=== PATIENT | female | born 1950 | race Caucasian/White ===

== ENCOUNTER 2016-12-24 15:12 | Inpatient (IN) | payer MEDICARE ==
[~2016-12-24] VITALS: Ht 147.3 cm; Wt 52.5 kg
[~2016-12-24 15:12] MED LIST: ALBUTEROL 90 MCG/ACT 8GM HFA INHALER INH PRN; DEXTROSE 50% 50 ML SYRINGE IV PRN; GLUCAGON FOR INJ 1 MG VIAL (J1610) SC PRN; GLUCOSE 4 GM CHEW TABLET PO PRN
[2016-12-24 15:26] VITALS: BP 121/59
--- NOTE | 2016-12-24 16:19 | HPEPDOC ---
V Belt Builder Note ADMISSION H&P + SHIRAZ [Note: No discharge summary available at time of admission despite multiple requests] DATE OF ADMISSION: 12/24/16 DATE OF SERVICE: 12/24/16 PCP: Ovidio Ascencio DO [phone] Vascular Surgeon: Rj Bernardo MD [phone] IDENTIFICATION STATEMENT: Patient is a 66-year-old woman multiple medical comorbidities status post left [id number]-[id number] amputation admitted for comprehensive integrated inpatient rehabilitation. Thereve been no significant changes in the patients condition since the preadmission screening. HISTORY OF PRESENT ILLNESS: Patient is a 66-year-old woman with known peripheral artery disease admitted to [facility] in [place] on 2016 with left ischemic leg, no motor function. She was initially scheduled for femoral-tibial bypass with cryo-vein on 12/09/2016, but it was determined that she would require amputation. On 12/21/16 she underwent a left transfemoral amputation. Due to decline in the patients baseline functional status and need for continued medical care, recommendation was for acute rehabilitation. On the patient was deemed stable for discharge to [facility] inpatient rehabilitation unit. On evaluation today, the patient reports feeling better than yesterday. She has not moved her bowels since prior to admission. On she reports of moderate to severe pain in the left residual leg around the incision site and the posterior thigh. She describes the pain as constant burning with intermittent shock-like pain. She reports that the current pain medication is effective. Prior to her admission she reports taking [place] 6 tabs per day for all at least 6 weeks. All she also reports that she was taking the current dose of gabapentin for approximately year for her left lower limb neuropathic pain. PAST MEDICAL HISTORY: Hypertension Hyperlipidemia Diabetes mellitus type 1 [per patient, last hemoglobin A1c a few weeks ago and was > 8] Coronary artery disease Aortic stenosis Congestive heart failure Peripheral artery disease Phlebitis Peripheral neuropathy COPD Asthma Gastroesophageal reflux Glaucoma Cataracts, bilaterally Macular degeneration, left eye Anxiety/depression Nicotine dependence Heavy alcohol use Sleep apnea on CPAP Arthritis PAST SURGICAL HISTORY: section 2 Bilateral carpal tunnel release Hysterectomy Dilatation and curettage of the uterus Right JOVITA stent 06/04/2005 Bilateral femoral popliteal artery bypass 07/01/2005 Coronary artery stent placement (prior to bypass) Coronary artery bypass graft and aortic valve(pig-valve) replacement January 2012 Left SFA angioplasty and stent 09/12/2012 Femoral to below the knee popliteal bypass on the left secondary to occluded prior bypass Right SFA angioplasty and stent 11/11/2014 Right leg thrombolysis 06/23/2015 Left leg thrombolysis August 2015 Pr vein bypass graft, fem-dorsalis pedis; exlp left ant tib 11/18/2015 Left runoff, thrombolysis the left leg arterial bypass, left dorsalis pedis balloon angioplasty 10/12/2017 ALLERGIES: Ciprofloxacin & sulfa antibiotics give her hives Tape tends to tear her skin MEDICATIONS: Norvasc 5 mg daily Dulcolax 10 mg suppository daily Colace 100 mg twice a day MiraLAX 1 packet daily Ventolin 2 puffs every 4 hours as needed for shortness of breath [place] 0.1% one drop each eye nightly Coreg 25 mg by mouth daily Vitamin D 2000 units by mouth daily Clobetasol 0.05% topically bid Plavix 75 mg daily Cymbalta 60 mg daily Zetia 10 mg daily Advair Diskus 2 puffs 2 times a day Neurontin 600 mg 3 times a day [place] 1 tab 4 times a day as needed [place] 2 tabs at night Lantus 20 units subcutaneous at night Insulin sliding scale before meals and at bedtime Cozaar 50 mg daily Multivitamin 1 tab daily Xarelto 1 tab daily Crestor 10 mg daily Spiriva 18 g 1 capsule nightly Demadex 20 mg daily FAMILY HISTORY: Mother suffered from diabetes; Son 42yo has cerebral palsy. SOCIAL HISTORY: . She lives with her in a two-story home, her bathroom and bedroom on the first level. They have ramp access since her son is handicapped (recently moved to a senior care as she was no longer able to care for him). She owns a wheelchair, 3W walker, 4W walker, robert lift, and old hospital bed. They have a handicap shower. Her works, but she has additional family that may be able to assist her on post discharge. She reports smoking a 6-8 cigarettes per day for the last 50 years. She reports drinking three 1 ounce shots of iram every evening. Denies any illicit drug use. Review of Systems: General: no chills, +fatigue, no weight changes. Eyes: no change of vision. Ears, Nose & Throat: no sore throat, decreased hearing or nasal discharge. Cardiovascular: no chest pain, edema, syncopal episodes. Pul: no cough, SOB, has home CPAP. GI: no BM x 4 days; no abdominal pain, N/V. Genitourinary: no dysuria. Gynecological: no vaginal bleeding, s/p hysterectomy . Musculoskeletal: no back/neck/joint pain. Neurological: +phantom limb sensation, but no phantom pain. no numbness, paresthesias, no tremors, progressive weakness, seizures, HARDING. Hematological: No bleeding disorders. Has been on Xarelto for ~1yr. Skin: no rashes. Psychiatric: depression/ anxiety well controlled on cymbalta, no behavioral issues. She denies any cravings for alcohol. She denies any diaphoresis, agitation, tremulousness. She does report some craving for smoking. VITAL SIGNS: 97.3F, pulse 89, respiratory rate 18, 145/79, 95% saturation on room air PHYSICAL EXAMINATION: GENERAL: Well nourished, well developed, sitting up in bed, no acute distress. HEENT: Normocephalic, atraumatic. No jugular venous distention (JVD). PERRL, EOMI CARDIOVASCULAR: S1, S2, regular rate. Left AKA -residual limb with sutures and oscar, no thickened discharge, no pus, no significant erythema, appears to be healing well. No swelling or calf edema on the right lower limb LUNGS: Decreased breath sounds throughout,, but clear to auscultation bilaterally no wheezing, rhonchi rales. ABDOMEN: Soft, nontender, nondistended. Positive normoactive bowel sounds throughout. MUSCULOSKELETAL: Diffuse osteoarthritic changes in the PIP and DIP joints of the hands. Manual muscle testin/5 strength bilateral upper limbs and right lower limb in all major muscle groups. 3/5 strength left hip flexors (give way) Sensation: Intact to soft touch bilateral upper and lower limbs. Positive tenderness to light palpation blanca-surgical region, but no allodynia. Deep tendon reflexes: Able to elicit biceps bilaterally, unable to elicit right lower limb. NEUROLOGICAL: Alert and oriented x 3. Answers all questions appropriately. Memory intact. Able to follow commands without difficulty. SKIN: 3 cm skin abrasion with scab on the left distal forearm, surgical site left residual limb, clean and intact with sutures and oscar. LABORATORY DATA: 12/24/2016: WBC 12.7, hemoglobin 11.5, hematocrit 35.3, platelets 3:30 T 16 2017: Sodium 136, potassium 4.7, chloride 92, carbon dioxide 33, BUN 16, creatinine 0.67, glucose 223, calcium 8.9 IMAGING: None provided FUNCTIONAL STATUS: Premorbid: Independent with ADLs and transfers. On Admission: Moderate assist for bed mobility, total assist for repositioning, moderate assist for transfers ASSESSMENT AND PLAN: 1. Left ischemic leg secondary to peripheral artery disease status post left [id number] amputation now with decreased mobility and dysfunctional ADLs: Patient is nonweightbearing on the left lower limb. Continue Plavix and anticoagulation with Xarelto. She will undergo thorough physical and occupational therapy evaluations followed by daily intensive therapy. Rehabilitation nursing for bladder, bowel, medication management and wound care. She will need follow-up appointment with her vascular surgeon, Dr. Bernardo post discharge. 2. Pain: Will continue on current pain regimen, gabapentin 3 times a day along with acetaminophen and [place] on an as-needed basis. Opioid tolerant. Intermittent ice to the left residual limb. 3. Bowel: Given the patients on opiates, will provide her with a bowel regimen to include Colace and senna scheduled along with milk of magnesia on an as- needed basis. 4. Cardiac/coronary artery disease/valvular heart disease/congestive heart failure: Daily weights. Will continue patient on her regular cardiac meds including Coreg, Plavix, Cozaar, Crestor and Demadex. 5. DVT prophylaxis: Patient anticoagulated with Xarelto. 6. GI prophylaxis: Given patients on anticoagulation and antiplatelet, will provided with Protonix daily while in the hospital. 7. Pulmonary (COPD, asthma, sleep apnea): Will maintain patient on her inhalers , Proventil, Advair, Spiriva. Patient instructed to have her CPAP brought in by her family. 8. Diabetes mellitus type 2: Maintain patient on long-acting insulin at night along with insulin sliding scale before meals and at bedtime. Carb consistent diet. 9. Depression: Continue Cymbalta 10. Alcohol and tobacco dependence: Patient out of the window of delirium tremors and currently not experiencing any signs or symptoms of withdrawal. Will continue to monitor. Regarding the patients of nicotine/smoking cravings. Given her severe peripheral vascular disease and coronary artery disease will abstain from nicotine patch. 11. Diet/nutrition: Will obtain a prealbumin with morning labs. Maintain patient on her carbohydrate consistent diet. Nutritional supplements as indicated. POST ADMISSION PHYSICIAN EVALUATION: On evaluation of the patient today there' ve been no significant medical issues or functional changes as compared to those noted in the preadmission screening document. This patient's inpatient rehabilitation remains necessary in light of the above conditions. The patient' s medical condition requires specialized care with physicians specially trained in physical medicine rehabilitation. The patient is capable motivated to participate in a minimum of 3 hours of therapy daily, 5 days minimum per week, and requires intensive inpatient rehabilitation to improve their functional status so that they can be safely to discharge back to their home. PROGNOSIS: good ESTIMATED LENGTH OF STAY: 10-14 days. / Vital Signs Vital Sign - Last 24 Hours 12/24/16 15:26 Temp 98.2 Pulse 95 Resp 18 B/P 121/59 Pulse Ox 95 O2 Delivery Room Air Home Medications Scheduled Amlodipine Besylate (Amlodipine Besylate) 5 Mg Tab 5 MG PO DAILY (Reported) STARTED AT [facility] Bimatoprost (Lumigan) 50 Drop/2.5 Ml Marlene 1 DROP OU QHS (Reported) Bisacodyl (Dulcolax) 10 Mg Sup 10 MG TN DAILY (Reported) STARTED AT [facility] Carvedilol (Carvedilol) 25 Mg Tab 25 MG PO DAILY (Reported) Cholecalciferol (Vitamin D) 1,000 Unit Tab 2,000 UNIT PO DAILY (Reported) Clopidogrel Bisulfate (Plavix) 75 Mg Tab 75 MG PO DAILY (Reported) Docusate Sodium (Colace) 100 Mg Cap 100 MG PO BID (Reported) STARTED AT [facility] Duloxetine Hcl (Duloxetine HCl) 60 Mg Cap 60 MG PO DAILY (Reported) Ezetimibe (Zetia) 10 Mg Tab 10 MG PO DAILY (Reported) Gabapentin (Gabapentin) 600 Mg Tab 600 MG PO TID (Reported) Insulin Glargine (Lantus) 1 Units/0.01 Ml Susp 20 UNITS SC QHS (Reported) Insulin Human Lispro (Humalog) 1 Units/0.01 Ml Inj 0 SC ACHS (Reported) Losartan Potassium (Losartan Potassium) 50 Mg Tab 50 MG PO DAILY (Reported) Multivitamins (Ocuvite) 1 Tab Tab 1 TAB PO DAILY (Reported) Polyethylene Glycol (Miralax) 1 Pow Pow 17 GM PO DAILY (Reported) STARTED AT [facility] Rivaroxaban (Xarelto) 20 Mg Tab 20 MG PO QPM (Reported) Rosuvastatin Calcium (Crestor) 20 Mg Tab 20 MG PO DAILY (Reported) Salmeterol/Fluticasone (Advair Hfa 115-21 Mcg/Act) 1 Aer Aer 2 PUFF INH BID ( Reported) Tiotropium [place] Monohydrate (Spiriva Handihaler) 18 Mcg Cap 1 INHALATION INH QHS (Reported) Torsemide (Torsemide) 20 Mg Tab 20 MG PO DAILY (Reported) Scheduled PRN Acetaminophen/Hydrocodone (Hydrocodone/Acetaminophen 5-325 mg) 1 Tab Tab 1 TAB PO Q4H PRN PRN MODERATE PAIN (PS 5-7) (Reported) MDD 4 Acetaminophen/Hydrocodone (Hydrocodone/Acetaminophen 5-325 mg) 1 Tab Tab 2 TAB PO Q4H PRN PRN SEVERE PAIN (PS 8-10) (Reported) MDD 4 Allergies Coded Allergies: Ciprofloxacin (Verified Allergy, Unknown, 12/24/16) Sulfa Antibiotics (Verified Allergy, Unknown, 12/24/16) TAPE (Verified Allergy, Unknown, 12/24/16) LINDA GIBSON MD Dec 24, 2016 16:19
[2016-12-24] MEDS: NORCO, ANEXSIA 5/325MG TABLET (HYDROcodone/ACETAMINOPHEN) PO PRN ×2 (16:31→20:33)
[2016-12-24] MEDS ORDERED: CARV25TA PO (16:35)
[2016-12-24] MEDS ORDERED: DULC10SU2 PR (16:35)
[2016-12-24] MEDS ORDERED: VITA100066 PO (16:35)
[2016-12-24] MEDS ORDERED: AMLO5TAB2 PO (16:35)
[2016-12-24] MEDS ORDERED: BIMA01SOL OU (16:35)
[2016-12-24] MEDS ORDERED: CLOB0.0548 TOP (16:35)
[2016-12-24] MEDS ORDERED: CRES20TA PO (16:35)
[2016-12-24] MEDS ORDERED: DULO1CAP3 PO (16:41)
[2016-12-24] MEDS ORDERED: INSUHUMDS SC (16:41)
[2016-12-24] MEDS ORDERED: GABA600T PO (16:41)
[2016-12-24] MEDS ORDERED: ZETI10TA2 PO (16:41)
[2016-12-24] MEDS ORDERED: COLA100C PO (16:41)
[2016-12-24] MEDS ORDERED: HYDR-3713 PO (16:41)
[2016-12-24] MEDS ORDERED: PLAV75TA38 PO (16:41)
[2016-12-24] MEDS ORDERED: INSULANT SC (16:41)
[2016-12-24] MEDS ORDERED: SPIR1CAP INH (16:53)
[2016-12-24] MEDS ORDERED: XARE20TA PO (16:53)
[2016-12-24] MEDS ORDERED: OCUVTAB PO (16:53)
[2016-12-24] MEDS ORDERED: LOSA50TA20 PO (16:53)
[2016-12-24] MEDS ORDERED: ADVA115A INH (16:53)
[2016-12-24] MEDS ORDERED: MIRA33504 PO (16:53)
[2016-12-24] MEDS ORDERED: TORS20TA2 PO (16:53)
[2016-12-24] MEDS: HumaLOG INSULIN (NovoLOG) PER UNIT SC SCH ×2 (16:55→21:13)
[2016-12-24] MEDS: GABAPENTIN 300 MG CAP PO SCH ×2 (16:55→21:12)
[2016-12-24] MEDS: RIVAROXABAN 20 MG TAB (XARELTO) PO SCH (18:38)
[2016-12-24] MEDS: ADVAIR HFA 115/21 INHALER INH SCH (20:05)
[2016-12-24] MEDS: DOCUSATE SODIUM 100 MG CAP PO SCH (20:32)
[2016-12-24] MEDS: SENNA 8.6 MG TAB (SENOKOT) PO SCH (20:32)
[2016-12-24] MEDS: LATANOPROST 0.005% OPHTH SOLN 2.5 ML OU SCH (20:33)
[2016-12-24 21:00] VITALS: BP 122/68
[2016-12-24] MEDS: LEVEMIR (INSULIN DETEMIR) 1 UNITS/0.01ML SC SCH (21:13)
[2016-12-25] MEDS: NORCO, ANEXSIA 5/325MG TABLET (HYDROcodone/ACETAMINOPHEN) PO PRN ×4 (02:02→20:46)
[2016-12-25 06:00] VITALS: BP 148/70
[2016-12-25] MEDS: GABAPENTIN 300 MG CAP PO SCH ×3 (06:13→21:16)
[2016-12-25 07:00] LABS: BASO % 0.1 % (0.0-1.0); EOS # 0.1 K/mm3 (0.0-0.50); EOS % 1.1 % (0.0-3.0); LARGE UNSTAINED CELL # 0.2 K/mm3 (0.0-0.4); LARGE UNSTAINED CELL % 1.8 % (0.0-4.0); LYMPH # 1.4 K/mm3 (1.5-4.5); LYMPH % 10.7 % (24.0-44.0); MEAN CORPUSCULAR HEMOGLOBIN 28.4 pg (27.0-33.0); MEAN CORPUSCULAR HGB CONC 31.7 g/dl (32.0-36.5); MEAN CORPUSCULAR VOLUME 89.8 fl (80.0-96.0); MONO # 0.5 K/mm3 (0.0-0.8); MONO % 4.5 % (0.0-5.0); NEUTROPHILS # 9.3 K/mm3 (1.8-7.7); NEUTROPHILS % 81.7 % (36.0-66.0); PLATELET COUNT, AUTOMATED 394 k/mm3 (150-450); RED CELL DISTRIBUTION WIDTH 15.6 % (11.5-14.5); WHITE BLOOD COUNT 11.3 K/mm3 (4.0-10.0)
[2016-12-25 07:20] LABS: ANION GAP 8 MEQ/L (8-16); BLOOD UREA NITROGEN 13 MG/DL (7-18); CALCIUM LEVEL 8.2 MG/DL (8.8-10.2); CARBON DIOXIDE LEVEL 35 MEQ/L (21-32); CHLORIDE LEVEL 97 MEQ/L (98-107); CREATININE FOR GFR 0.57 MG/DL (0.55-1.02); GLOMERULAR FILTRATION RATE > 60.0 (>45); GLUCOSE, FASTING 187 MG/DL (80-110); POTASSIUM SERUM 3.9 MEQ/L (3.5-5.1); SODIUM LEVEL 140 MEQ/L (136-145)
[2016-12-25] MEDS: MULTIVITAMINS/MINERALS THERAP 1 TAB PO SCH (08:15)
[2016-12-25] MEDS: DOCUSATE SODIUM 100 MG CAP PO SCH ×2 (08:15→20:46)
[2016-12-25] MEDS: VITAMIN D 1,000 INTERNATIONAL UNITS TABLET PO SCH (08:15)
[2016-12-25] MEDS: PANTOPRAZOLE 40MG TAB (PROTONIX) PO SCH (08:15)
[2016-12-25] MEDS: DULoxetine 30 MG CAP (CYMBALTA) PO SCH (08:15)
[2016-12-25] MEDS: HumaLOG INSULIN (NovoLOG) PER UNIT SC SCH ×4 (08:15→20:51)
[2016-12-25] MEDS: amLODIPine 5 MG TAB PO SCH (08:16)
[2016-12-25] MEDS: TORSEMIDE 20 MG TAB PO SCH (08:16)
[2016-12-25] MEDS: EZETIMIBE 10 MG TAB (ZETIA) PO SCH (08:16)
[2016-12-25] MEDS: LOSARTAN 50 MG TAB PO SCH (08:16)
[2016-12-25] MEDS: CLOPIDOGREL 75 MG TAB PO SCH (08:16)
[2016-12-25] MEDS: ROSUVASTATIN 10 MG TAB (CRESTOR) PO SCH (08:16)
[2016-12-25] MEDS: CARVedilol 12.5 MG TAB PO SCH (08:17)
[2016-12-25] MEDS: TIOTROPIUM INHALER/CAPSULE (SPIRIVA) INH SCH (08:21)
[2016-12-25] MEDS: ADVAIR HFA 115/21 INHALER INH SCH ×2 (08:21→19:49)
[2016-12-25 14:00] VITALS: BP 143/65
[2016-12-25] MEDS: RIVAROXABAN 20 MG TAB (XARELTO) PO SCH (17:34)
[2016-12-25] MEDS: MOM 30ML SUSPENSION UDC PO PRN (17:34)
[2016-12-25] MEDS: MIRALAX *UNIT DOSE* 17GM PACKET PO PRN (17:34)
[2016-12-25 20:00] VITALS: BP 168/74
[2016-12-25] MEDS: LATANOPROST 0.005% OPHTH SOLN 2.5 ML OU SCH (20:45)
[2016-12-25] MEDS: SENNA 8.6 MG TAB (SENOKOT) PO SCH (20:46)
[2016-12-25] MEDS: LEVEMIR (INSULIN DETEMIR) 1 UNITS/0.01ML SC SCH (20:46)
[2016-12-25 21:16] VITALS: BP 142/68
[2016-12-26] MEDS: GABAPENTIN 300 MG CAP PO SCH ×3 (05:07→21:47)
[2016-12-26] MEDS: NORCO, ANEXSIA 5/325MG TABLET (HYDROcodone/ACETAMINOPHEN) PO PRN ×4 (05:08→20:14)
[2016-12-26 06:00] VITALS: BP 153/70
[2016-12-26] MEDS: DOCUSATE SODIUM 100 MG CAP PO SCH ×2 (08:14→20:07)
[2016-12-26] MEDS: PANTOPRAZOLE 40MG TAB (PROTONIX) PO SCH (08:14)
[2016-12-26] MEDS: ROSUVASTATIN 10 MG TAB (CRESTOR) PO SCH (08:14)
[2016-12-26] MEDS: HumaLOG INSULIN (NovoLOG) PER UNIT SC SCH ×4 (08:14→21:47)
[2016-12-26] MEDS: MULTIVITAMINS/MINERALS THERAP 1 TAB PO SCH (08:14)
[2016-12-26] MEDS: TORSEMIDE 20 MG TAB PO SCH (08:15)
[2016-12-26] MEDS: EZETIMIBE 10 MG TAB (ZETIA) PO SCH (08:15)
[2016-12-26] MEDS: CLOPIDOGREL 75 MG TAB PO SCH (08:15)
[2016-12-26] MEDS: LOSARTAN 50 MG TAB PO SCH (08:15)
[2016-12-26] MEDS: amLODIPine 5 MG TAB PO SCH (08:16)
[2016-12-26] MEDS: VITAMIN D 1,000 INTERNATIONAL UNITS TABLET PO SCH (08:16)
[2016-12-26] MEDS: DULoxetine 30 MG CAP (CYMBALTA) PO SCH (08:16)
[2016-12-26] MEDS: CARVedilol 12.5 MG TAB PO SCH (08:16)
[2016-12-26] MEDS: MOM 30ML SUSPENSION UDC PO PRN (08:17)
[2016-12-26] MEDS: ADVAIR HFA 115/21 INHALER INH SCH ×2 (11:03→21:32)
[2016-12-26 14:00] VITALS: BP 127/53
[2016-12-26] MEDS: TIOTROPIUM INHALER/CAPSULE (SPIRIVA) INH SCH (14:10)
[2016-12-26] MEDS: RIVAROXABAN 20 MG TAB (XARELTO) PO SCH (17:44)
[2016-12-26 20:00] VITALS: BP 121/57
[2016-12-26] MEDS: SENNA 8.6 MG TAB (SENOKOT) PO SCH (20:08)
[2016-12-26] MEDS: LATANOPROST 0.005% OPHTH SOLN 2.5 ML OU SCH (20:12)
[2016-12-26] MEDS: LEVEMIR (INSULIN DETEMIR) 1 UNITS/0.01ML SC SCH (21:47)
[2016-12-27] MEDS: NORCO, ANEXSIA 5/325MG TABLET (HYDROcodone/ACETAMINOPHEN) PO PRN ×4 (02:46→20:00)
[2016-12-27 06:00] VITALS: BP 126/64
[2016-12-27] MEDS: GABAPENTIN 300 MG CAP PO SCH ×3 (06:14→20:54)
[2016-12-27] MEDS: HumaLOG INSULIN (NovoLOG) PER UNIT SC SCH ×4 (08:37→20:02)
[2016-12-27] MEDS: ROSUVASTATIN 10 MG TAB (CRESTOR) PO SCH (08:37)
[2016-12-27] MEDS: LOSARTAN 50 MG TAB PO SCH (08:37)
[2016-12-27] MEDS: PANTOPRAZOLE 40MG TAB (PROTONIX) PO SCH (08:37)
[2016-12-27] MEDS: DOCUSATE SODIUM 100 MG CAP PO SCH ×2 (08:37→19:58)
[2016-12-27] MEDS: VITAMIN D 1,000 INTERNATIONAL UNITS TABLET PO SCH (08:38)
[2016-12-27] MEDS: MULTIVITAMINS/MINERALS THERAP 1 TAB PO SCH (08:38)
[2016-12-27] MEDS: amLODIPine 5 MG TAB PO SCH (08:38)
[2016-12-27] MEDS: CARVedilol 12.5 MG TAB PO SCH (08:38)
[2016-12-27] MEDS: EZETIMIBE 10 MG TAB (ZETIA) PO SCH (08:38)
[2016-12-27] MEDS: CLOPIDOGREL 75 MG TAB PO SCH (08:38)
[2016-12-27] MEDS: TORSEMIDE 20 MG TAB PO SCH (08:39)
[2016-12-27] MEDS: DULoxetine 30 MG CAP (CYMBALTA) PO SCH (08:39)
[2016-12-27] MEDS: ADVAIR HFA 115/21 INHALER INH SCH ×2 (08:40→19:46)
--- NOTE | 2016-12-27 12:16 | IPNPDOC ---
Commercial Baking Teacher Progress Note PROGRESS NOTE DATE OF ADMISSION: 12/24/16 DATE OF SERVICE: 12/27/16 PCP: Ovidio Ascencio DO [phone] Vascular Surgeon: Rj Bernardo MD [phone] IDENTIFICATION STATEMENT: Patient is a 66-year-old woman multiple medical comorbidities status post left [id number] amputation admitted for comprehensive integrated inpatient rehabilitation. PAST MEDICAL HISTORY: Hypertension Hyperlipidemia Diabetes mellitus type 1 [per patient, last hemoglobin A1c a few weeks ago and was > 8] Coronary artery disease Aortic stenosis Congestive heart failure Peripheral artery disease Phlebitis Peripheral neuropathy COPD Asthma Gastroesophageal reflux Glaucoma Cataracts, bilaterally Macular degeneration, left eye Anxiety/depression Nicotine dependence Heavy alcohol use Sleep apnea on CPAP Arthritis PAST SURGICAL HISTORY: section 2 Bilateral carpal tunnel release Hysterectomy Dilatation and curettage of the uterus Right JOVITA stent 06/04/2005 Bilateral femoral popliteal artery bypass 07/01/2005 Coronary artery stent placement (prior to bypass) Coronary artery bypass graft and aortic valve(pig-valve) replacement January 2012 Left SFA angioplasty and stent 09/12/2012 Femoral to below the knee popliteal bypass on the left secondary to occluded prior bypass Right SFA angioplasty and stent 11/11/2014 Right leg thrombolysis 06/23/2015 Left leg thrombolysis August 2015 Pr vein bypass graft, fem-dorsalis pedis; exlp left ant tib 11/18/2015 Left runoff, thrombolysis the left leg arterial bypass, left dorsalis pedis balloon angioplasty 10/12/2017 ALLERGIES: Ciprofloxacin & sulfa antibiotics give her hives Tape tends to tear her skin MEDICATIONS: Plavix 75 mg daily Xarelto 1 tab daily Protonix 40mg daily Norvasc 5 mg daily Coreg 25 mg by mouth daily Demadex 20 mg daily Vitamin D 2000 units by mouth daily Cymbalta 60 mg daily Zetia 10 mg daily Detrimir 20u SQ qhs Advair Diskus 2 puffs 2 times a day Neurontin 600 mg 3 times a day Colace 100 mg twice a day MiraLAX 1 packet daily prn Ventolin 2 puffs every 4 hours as needed for shortness of breath Lumigan 0.1% one drop each eye nightly Clobetasol 0.05% topically bid [place] 1-2 tabs PO q4h prn Insulin sliding scale before meals and at bedtime Cozaar 50 mg daily Multivitamin 1 tab daily Crestor 10 mg daily Spiriva 18 g 1 capsule nightly SUBJECTIVE: Patient reports new phantom limb pain, started yesterday. Described as intermittent, sharp/burning, posterior thigh and radiating down limb. No other complaints. Denies any CP, SOB, N/V, diaphoresis, dysuria, C/D. VITAL SIGNS: 97.4F, pulse 82, respiratory rate 18, 126/64, 97% saturation on room air. Wt 54.9kg PHYSICAL EXAMINATION: GENERAL: Well nourished, well developed, sitting up in bed, no acute distress. HEENT: Normocephalic, atraumatic. No jugular venous distention (JVD). PERRL, EOMI CARDIOVASCULAR: S1, S2, regular rate. Left AKA -residual limb with sutures and oscar, no discharge, no pus, no significant erythema, appears to be healing well. No swelling or calf edema on the right lower limb LUNGS: Decreased breath sounds throughout, but clear to auscultation bilaterally no wheezing, rhonchi rales. ABDOMEN: Soft, nontender, nondistended. Positive normoactive bowel sounds throughout. MUSCULOSKELETAL: Diffuse osteoarthritic changes in the PIP and DIP joints of the hands. MMT: 5/5 strength bilateral upper limbs and right lower limb in all major muscle groups. 3/5 strength left hip flexors (give way) NEUROLOGICAL: Alert and oriented x 3. Answers all questions appropriately. Memory intact. Able to follow commands without difficulty. SKIN: 3 cm skin abrasion with scab on the left distal forearm, surgical site left residual limb, clean and intact with sutures and oscar. LABORATORY DATA: 12/25/16: reviewed, WBC 11.3, BG 187 12/24/2016: WBC 12.7, hemoglobin 11.5, hematocrit 35.3, platelets 3:30 T 16 2017: Sodium 136, potassium 4.7, chloride 92, carbon dioxide 33, BUN 16, creatinine 0.67, glucose 223, calcium 8.9 FUNCTIONAL STATUS: Premorbid: Independent with ADLs and transfers. On Admission: Moderate assist for bed mobility, total assist for repositioning, moderate assist for transfers ASSESSMENT AND PLAN: 1. Left ischemic leg secondary to peripheral artery disease status post left vaina-jqi-pypc amputation now with decreased mobility and dysfunctional ADLs: NWB on the left lower limb. Continue Plavix and anticoagulation with Xarelto. Continue daily physical and occupational therapy. Rehabilitation nursing for bladder, bowel, medication management and wound care. She will need follow-up appointment with her vascular surgeon, Dr. Bernardo post discharge and manager [employer] database. 2. Pain: Now experiencing phantom pain. I have removed dressing given patients sensitivity to tape. If persists, will increase evening dose gabapentin. Continue acetaminophen and [place] on an as-needed basis. Intermittent ice to the left residual limb. 3. Bowel: Continue bowel regimen to include Colace and senna scheduled along with milk of magnesia on an as-needed basis. 4. Cardiac/coronary artery disease/valvular heart disease/congestive heart failure: Weight down sinice admission. Continue daily weights. Continue her regular cardiac meds including Coreg, Xarelto, Plavix, Cozaar, Crestor and Demadex. 5. DVT prophylaxis: Patient anticoagulated with Xarelto. 6. GI prophylaxis: Continue Protonix daily while in the hospital. 7. Pulmonary (COPD, asthma, sleep apnea): Will maintain patient on her inhalers , Proventil, Advair, Spiriva. Continue CPAP at night. 8. Diabetes mellitus type 2: Goal for tight BG control to facilitate healing. She states her ISS is different at home and that she usually uses more insulin. Will increase long-acting insulin and insulin sliding scale before meals and at bedtime. Carb consistent diet. 9. Depression: Controlled. Continue Cymbalta 10. Alcohol and tobacco dependence: No signs or symptoms of withdrawal. 11. Diet/severe malnutrition: Prealbumin low. Continue Glucerna supplements. Maintain carbohydrate consistent diet. / Vital Signs Vital Sign - Last 24 Hours 12/26/16 12/26/16 12/26/16 12/26/16 14:00 16:22 20:00 20:14 Temp 98.7 99.2 Pulse 81 86 Resp 18 18 18 18 B/P 127/53 121/57 Pulse Ox 94 93 94 O2 Delivery Room Air Room Air Room Air 12/26/16 12/27/16 12/27/16 12/27/16 20:28 02:46 03:20 06:00 Temp 97.4 Pulse 82 Resp 18 18 B/P 126/64 Pulse Ox 95 95 97 O2 Delivery Room Air Room Air Nasal Cannula O2 Flow Rate 2.0 12/27/16 12/27/16 12/27/16 12/27/16 08:37 08:38 08:41 09:41 Pulse 82 Resp 18 18 B/P 126/64 126/64 12/27/16 09:55 O2 Delivery Room Air Laboratory Data Labs 24H Laboratory Tests 2 12/26/16 17:18: Bedside Glucose (Misc Panel) 240H 12/26/16 20:53: Bedside Glucose (Misc Panel) 342H 12/27/16 05:56: Bedside Glucose (Misc Panel) 221H 12/27/16 11:26: Bedside Glucose (Misc Panel) 268H FSBS Laboratory Tests Test 12/26/16 17:18 12/26/16 20:53 12/27/16 05:56 12/27/16 11:26 Range/Units Bedside Glucose (Misc Panel) 240 342 221 268 80-115 MG/DL Allergies Allergies: Coded Allergies: Ciprofloxacin (Verified Allergy, Unknown, 12/24/16) Sulfa Antibiotics (Verified Allergy, Unknown, 12/24/16) TAPE (Verified Allergy, Unknown, 12/24/16) Current Medications Current Medications Current Medications Acetaminophen (Tylenol Tab) 650 mg Q4HP PRN PO MILD PAIN (PS 1-4); Start at 14:30; Stop 01/23/17 at 14:29 Acetaminophen/ Hydrocodone Bitart ([place], [place] 5/325) 1 tab Q4HP PRN PO MODERATE/SEVERE PAIN (PS 5-10) Last administered on 12/25/16 02:02; Start 12/24 at 14:30; Stop 12/31/16 at 14:29 Acetaminophen/ Hydrocodone Bitart ([place], [place] 5/325) 2 tab Q4HP PRN PO SEVERE PAIN (PS 8-10) Last administered on 12/27/16 08:41; Start 12/24/16 at 14 :30; Stop 12/31/16 at 14:29 Albuterol Sulfate (Proventil, Ventolin Hfa) 2 puff Q4HP PRN INH SHORTNESS OF BREATH; Start 12/24/16 at 14:30; Stop 01/23/17 at 14:29 Amlodipine Besylate (Norvasc) 5 mg DAILY PO Last administered on 12/27/16 08: 38; Start 12/25/16 at 09:00; Stop 01/24/17 at 08:59 Carvedilol (COReg) 25 mg DAILY PO Last administered on 12/27/16 08:38; Start 12/25/16 at 09:00; Stop 01/24/17 at 08:59 Clopidogrel Bisulfate (PLAVix) 75 mg DAILY PO Last administered on 12/27/16 08 :38; Start 12/25/16 at 09:00; Stop 01/24/17 at 08:59 Dextrose (Dextrose 50%) 25 ml ASDIRECTED PRN IV SEE LABEL COMMENTS; Start 12/24 at 14:30; Stop 01/23/17 at 14:29 Docusate Sodium (Colace) 100 mg BID PO Last administered on 12/27/16 08:37; Start 12/24/16 at 21:00; Stop 01/23/17 at 20:59 Duloxetine HCl (Cymbalta) 60 mg DAILY PO Last administered on 12/27/16 08:39; Start 12/25/16 at 09:00; Stop 01/24/17 at 08:59 EZETIMIBE (Zetia) 10 mg DAILY PO Last administered on 12/27/16 08:38; Start at 09:00; Stop 01/24/17 at 08:59 Gabapentin (Neurontin) 600 mg Q8H PO Last administered on 12/27/16 06:14; Start 12/24/16 at 14:00; Stop 01/23/17 at 13:59 Glucagon (Glucagon) 1 mg ASDIRECTED PRN SC SEE LABEL COMMENTS; Start 12/24/16 at 14:30; Stop 01/23/17 at 14:29 Glucose (Glucose) 16 GM ASDIRECTED PRN PO SEE LABEL COMMENTS; Start 12/24/16 at 14:30; Stop 01/23/17 at 14:29 Home Med (Med Rec Complete!) ASDIRECTED XX ; Start 12/24/16 at 17:00; Stop at 17:00; Status DC Insulin Detemir (Levemir Insulin) 20 units QHS SC Last administered on 21:47; Start 12/24/16 at 21:00; Stop 01/23/17 at 20:59 Insulin Human Lispro (HumaLOG INSULIN) See Protocol Table AC SC Last administered on 12/27/16 11:55; Start 12/24/16 at 17:30; Stop 01/23/17 at 17:29 Insulin Human Lispro (HumaLOG INSULIN) See Protocol Table QHS SC Last administered on 12/26/16 21:47; Start 12/24/16 at 21:00; Stop 01/23/17 at 20:59 Latanoprost (Xalatan 0.005% Op Soln) 1 drop QHS OU Last administered on 20:12; Start 12/24/16 at 21:00; Stop 01/23/17 at 20:59 Losartan Potassium (Cozaar) 50 mg DAILY PO Last administered on 12/27/16 08:37 ; Start 12/25/16 at 09:00; Stop 01/24/17 at 08:59 Magnesium Hydroxide (Milk Of Magnesia) 30 ml DAILYPRN PRN PO CONSTIPATION Last administered on 12/26/16 08:17; Start 12/24/16 at 14:30; Stop 01/23/17 at 14:29 Multivitamins (Theragram-M) 1 tab DAILY PO Last administered on 12/27/16 08:38 ; Start 12/25/16 at 09:00; Stop 01/24/17 at 08:59 Pantoprazole Sodium (Protonix) 40 mg DAILY PO Last administered on 12/27/16 08 :37; Start 12/25/16 at 09:00; Stop 01/24/17 at 08:59 Polyethylene Glycol (Miralax) 1 pkt DAILY PRN PO CONSTIPATION Last administered on 12/25/16 17:34; Start 12/24/16 at 14:30; Stop 01/23/17 at 14:29 Rivaroxaban (Xarelto) 20 mg DAILY@18 PO Last administered on 12/26/16 17:44; Start 12/24/16 at 18:00; Stop 12/31/16 at 17:59 Rosuvastatin Calcium (Crestor) 10 mg DAILY PO Last administered on 12/27/16 08 :37; Start 12/25/16 at 09:00; Stop 01/24/17 at 08:59 Salmeterol Xinafoate/ Fluticasone (Advair Hfa 115/ 21) 2 puff BID INH Last administered on 12/27/16 08:40; Start 12/24/16 at 21:00; Stop 01/23/17 at 20:59 Senna (Senokot) 1 tab QHS PO Last administered on 12/25/16 20:46; Start at 21:00; Stop 01/23/17 at 20:59 Tiotropium [place] (Spiriva Handihaler) 1 inhalation DAILY@08 INH ; Start at 08:00; Stop 01/26/17 at 07:59 Tiotropium [place] (Spiriva Handihaler) 1 inhalation QPM INH Last administered on 12/26/16 14:10; Start 12/24/16 at 21:00; Stop 12/27/16 at 09:08; Status DC Torsemide (Demadex) 20 mg DAILY PO Last administered on 12/27/16 08:39; Start 12/25/16 at 09:00; Stop 01/24/17 at 08:59 Vitamin D (Vitamin D) 2,000 units DAILY PO Last administered on 12/27/16 08:38 ; Start 12/25/16 at 09:00; Stop 01/24/17 at 08:59 LINDA GIBSON MD Dec 27, 2016 12:15
[2016-12-27 14:00] VITALS: BP 137/71
[2016-12-27] MEDS: TIOTROPIUM INHALER/CAPSULE (SPIRIVA) INH SCH (14:26)
[2016-12-27] MEDS: RIVAROXABAN 20 MG TAB (XARELTO) PO SCH (17:05)
[2016-12-27] MEDS: LATANOPROST 0.005% OPHTH SOLN 2.5 ML OU SCH (19:57)
[2016-12-27] MEDS: SENNA 8.6 MG TAB (SENOKOT) PO SCH (19:58)
[2016-12-27 20:00] VITALS: BP 123/58
[2016-12-27] MEDS: LEVEMIR (INSULIN DETEMIR) 1 UNITS/0.01ML SC SCH (20:01)
[2016-12-28] MEDS: NORCO, ANEXSIA 5/325MG TABLET (HYDROcodone/ACETAMINOPHEN) PO PRN ×5 (02:10→20:58)
[2016-12-28 05:06] VITALS: BP 162/69
[2016-12-28] MEDS: GABAPENTIN 300 MG CAP PO SCH (05:20)
[2016-12-28 06:41] LABS: BASO % 0.3 % (0.0-1.0); EOS # 0.1 K/mm3 (0.0-0.50); EOS % 1.7 % (0.0-3.0); LARGE UNSTAINED CELL # 0.2 K/mm3 (0.0-0.4); LARGE UNSTAINED CELL % 2.2 % (0.0-4.0); LYMPH # 1.6 K/mm3 (1.5-4.5); MEAN CORPUSCULAR HEMOGLOBIN 28.5 pg (27.0-33.0); MEAN CORPUSCULAR HGB CONC 31.8 g/dl (32.0-36.5); MEAN CORPUSCULAR VOLUME 89.7 fl (80.0-96.0); MONO # 0.4 K/mm3 (0.0-0.8); MONO % 5.1 % (0.0-5.0); NEUTROPHILS # 5.6 K/mm3 (1.8-7.7); NEUTROPHILS % 72.8 % (36.0-66.0); PLATELET COUNT, AUTOMATED 432 k/mm3 (150-450); RED CELL DISTRIBUTION WIDTH 15.4 % (11.5-14.5); WHITE BLOOD COUNT 7.7 K/mm3 (4.0-10.0)
[2016-12-28 06:59] LABS: ANION GAP 5 MEQ/L (8-16); BLOOD UREA NITROGEN 13 MG/DL (7-18); CALCIUM LEVEL 8.8 MG/DL (8.8-10.2); CARBON DIOXIDE LEVEL 36 MEQ/L (21-32); CHLORIDE LEVEL 98 MEQ/L (98-107); CREATININE FOR GFR 0.66 MG/DL (0.55-1.02); GLOMERULAR FILTRATION RATE > 60.0 (>45); GLUCOSE, FASTING 162 MG/DL (80-110); POTASSIUM SERUM 4.4 MEQ/L (3.5-5.1); SODIUM LEVEL 139 MEQ/L (136-145)
[2016-12-28] MEDS: ADVAIR HFA 115/21 INHALER INH SCH ×2 (07:56→20:31)
[2016-12-28] MEDS: TIOTROPIUM INHALER/CAPSULE (SPIRIVA) INH SCH (08:00)
[2016-12-28] MEDS: HumaLOG INSULIN (NovoLOG) PER UNIT SC SCH ×4 (08:17→20:59)
[2016-12-28] MEDS: DOCUSATE SODIUM 100 MG CAP PO SCH ×2 (08:17→20:57)
[2016-12-28] MEDS: CARVedilol 12.5 MG TAB PO SCH (08:17)
[2016-12-28] MEDS: VITAMIN D 1,000 INTERNATIONAL UNITS TABLET PO SCH (08:18)
[2016-12-28] MEDS: amLODIPine 5 MG TAB PO SCH (08:18)
[2016-12-28] MEDS: PANTOPRAZOLE 40MG TAB (PROTONIX) PO SCH (08:18)
[2016-12-28] MEDS: DULoxetine 30 MG CAP (CYMBALTA) PO SCH (08:18)
[2016-12-28] MEDS: EZETIMIBE 10 MG TAB (ZETIA) PO SCH (08:18)
[2016-12-28] MEDS: MULTIVITAMINS/MINERALS THERAP 1 TAB PO SCH (08:18)
[2016-12-28] MEDS: LOSARTAN 50 MG TAB PO SCH (08:18)
[2016-12-28] MEDS: CLOPIDOGREL 75 MG TAB PO SCH (08:18)
[2016-12-28] MEDS: TORSEMIDE 20 MG TAB PO SCH (08:18)
[2016-12-28] MEDS: ROSUVASTATIN 10 MG TAB (CRESTOR) PO SCH (08:18)
[2016-12-28] MEDS ORDERED: GABAPENTIN 100 MG CAP PO ONE (09:45)
[2016-12-28 10:07] VITALS: BP 89/53
[2016-12-28 10:08] VITALS: BP 90/51
[2016-12-28 10:09] VITALS: BP 79/47
--- NOTE | 2016-12-28 11:22 | IPNPDOC ---
Personal Banking Advisor Progress Note PROGRESS NOTE DATE OF ADMISSION: 12/24/16 DATE OF SERVICE: 12/28/16 PCP: Ovidio Ascencio DO [phone] Vascular Surgeon: Rj Bernardo MD [phone] IDENTIFICATION STATEMENT: Patient is a 66-year-old woman multiple medical comorbidities status post left [id number] amputation admitted for comprehensive integrated inpatient rehabilitation. PAST MEDICAL HISTORY: Hypertension Hyperlipidemia Diabetes mellitus type 1 [per patient, last hemoglobin A1c a few weeks ago and was > 8] Coronary artery disease Aortic stenosis Congestive heart failure Peripheral artery disease Phlebitis Peripheral neuropathy COPD Asthma Gastroesophageal reflux Glaucoma Cataracts, bilaterally Macular degeneration, left eye Anxiety/depression Nicotine dependence Heavy alcohol use Sleep apnea on CPAP Arthritis PAST SURGICAL HISTORY: section 2 Bilateral carpal tunnel release Hysterectomy Dilatation and curettage of the uterus Right JOVITA stent 06/04/2005 Bilateral femoral popliteal artery bypass 07/01/2005 Coronary artery stent placement (prior to bypass) Coronary artery bypass graft and aortic valve(pig-valve) replacement January 2012 Left SFA angioplasty and stent 09/12/2012 Femoral to below the knee popliteal bypass on the left secondary to occluded prior bypass Right SFA angioplasty and stent 11/11/2014 Right leg thrombolysis 06/23/2015 Left leg thrombolysis August 2015 Pr vein bypass graft, fem-dorsalis pedis; exlp left ant tib 11/18/2015 Left runoff, thrombolysis the left leg arterial bypass, left dorsalis pedis balloon angioplasty 10/12/2017 ALLERGIES: Ciprofloxacin & sulfa antibiotics give her hives Tape tends to tear her skin MEDICATIONS: Plavix 75 mg daily Xarelto 1 tab daily Protonix 40mg daily Norvasc 5 mg daily Coreg 25 mg by mouth daily Demadex 20 mg daily Vitamin D 2000 units by mouth daily Cymbalta 60 mg daily Zetia 10 mg daily Detrimir 20u SQ qhs Advair Diskus 2 puffs 2 times a day Neurontin 600 mg 3 times a day Colace 100 mg twice a day MiraLAX 1 packet daily prn Ventolin 2 puffs every 4 hours as needed for shortness of breath Lumigan 0.1% one drop each eye nightly Clobetasol 0.05% topically bid Driscoll 1-2 tabs PO q4h prn Insulin sliding scale before meals and at bedtime Cozaar 50 mg daily Multivitamin 1 tab daily Crestor 10 mg daily Spiriva 18 g 1 capsule nightly SUBJECTIVE: Patient reports continued phantom limb pain, started Tuesday, persistent, waxes and wanes. Sharp, posterior thigh and radiating down limb. No other complaints. Denies any CP, SOB, N/V, diaphoresis, lightheadedness, dysuria , C/D. VITAL SIGNS: 97.6F, pulse 87, respiratory rate 20, 162/69 (79/47), 98% saturation on room air. Wt 54.3kg PHYSICAL EXAMINATION: GENERAL: Well nourished, well developed, sitting in WC, no acute distress. HEENT: Normocephalic, atraumatic. No jugular venous distention (JVD). PERRL, EOMI CARDIOVASCULAR: S1, S2, regular rate. Left AKA -residual limb with sutures and oscar, no discharge, no pus, no significant erythema, appears to be healing well. No swelling or calf edema on the right lower limb LUNGS: Decreased breath sounds throughout, but clear to auscultation bilaterally no wheezing, rhonchi rales. ABDOMEN: Soft, nontender, nondistended. Positive normoactive bowel sounds throughout. MUSCULOSKELETAL: Diffuse osteoarthritic changes in the PIP and DIP joints of the hands. MMT: 5/5 strength bilateral upper limbs and right lower limb in all major muscle groups. 3/5 strength left hip flexors (give way) NEUROLOGICAL: Alert and oriented x 3. Answers all questions appropriately. Memory intact. Able to follow commands without difficulty. SKIN: 3 cm skin abrasion with scab on the left distal forearm healing, surgical site left residual limb, clean and intact with sutures and oscar. LABORATORY DATA: 12/28/16: reviewed, see below FUNCTIONAL STATUS: Premorbid: Independent with ADLs and transfers. On Admission: Moderate assist for bed mobility, total assist for repositioning, moderate assist for transfers ASSESSMENT AND PLAN: 1. Left ischemic leg secondary to peripheral artery disease status post left [id number] amputation now with decreased mobility and dysfunctional ADLs: NWB on the left lower limb. Continue Plavix and anticoagulation with Xarelto. Patient making progress. Continue daily physical and occupational therapy. Rehabilitation nursing for bladder, bowel, medication management and wound care. Follow-up appointment with her vascular surgeon, Dr. Bernardo post discharge and hydrator operator. 2. Pain: Persistent phantom pain. Will increase gabapentin to 800mg q8h. Continue acetaminophen and Driscoll on an as-needed basis. Intermittent ice to the left residual limb. Further adjustments if needed 3. Bowel: Continue bowel regimen to include Colace and senna scheduled along with milk of magnesia on an as-needed basis. 4. Cardiac/coronary artery disease/valvular heart disease/congestive heart failure: Weight down sinice admission. Continue daily weights. Continue her regular cardiac meds including Coreg, Xarelto, Plavix, Cozaar, Crestor and Demadex, although due to relative hypertension/ hypotension, changed Norvasc to qpm. Will recheck later today and if remains low will further adjust medications. 5. DVT prophylaxis: Patient anticoagulated with Xarelto. 6. GI prophylaxis: Continue Protonix daily while in the hospital. 7. Pulmonary (COPD, asthma, sleep apnea): Maintain patient on her inhalers, Proventil, Advair, Spiriva. Continue CPAP at night. 8. Diabetes mellitus type 2: Goal for tight BG control to facilitate healing. She states her ISS is different at home and that she usually uses more insulin. S/p increase long-acting insulin 12/27/16 BG improved this am. Continue insulin sliding scale before meals and at bedtime. Carb consistent diet. 9. Depression: Controlled. Continue Cymbalta 10. Alcohol and tobacco dependence: No signs or symptoms of withdrawal. 11. Diet/severe malnutrition: Prealbumin low. Continue Glucerna supplements. Maintain carbohydrate consistent diet. / Vital Signs Vital Sign - Last 24 Hours 12/27/16 12/27/16 12/27/16 12/27/16 14:00 14:22 20:00 20:00 Temp 97.8 98.5 Pulse 83 87 Resp 18 18 B/P 137/71 123/58 Pulse Ox 96 94 O2 Delivery Room Air Room Air 12/27/16 12/28/16 12/28/16 12/28/16 21:00 02:10 05:06 08:00 Temp 97.6 Pulse 87 Resp 18 18 B/P 162/69 Pulse Ox 98 O2 Delivery Room Air Nasal Cannula Room Air O2 Flow Rate 2.0 12/28/16 12/28/16 12/28/16 12/28/16 08:17 08:18 08:18 08:21 Pulse 87 87 Resp 20 B/P 162/69 162/69 162/69 212/28/16 12/28/16 12/28/16 08:51 10:07 10:08 10:09 Resp 20 B/P 89/53 90/51 79/47 Laboratory Data CBC/BMP Laboratory Tests 12/28/16 06:32 Calcium Level 8.8, Red Blood Count 4.08, Mean Corpuscular Volume 89.7, Mean Corpuscular Hemoglobin 28.5, Mean Corpuscular Hemoglobin Concent 31.8 L, Red Cell Distribution Width 15.4 H, Neutrophils (%) (Auto) 72.8 H, Lymphocytes (%) ( Auto) 18.0 L, Monocytes (%) (Auto) 5.1 H, Eosinophils (%) (Auto) 1.7, Basophils (%) (Auto) 0.3, Neutrophils # (Auto) 5.6, Lymphocytes # (Auto) 1.6, Monocytes # (Auto) 0.4, Eosinophils # (Auto) 0.1, Basophils # (Auto) 0.0 Labs 24H Laboratory Tests 2 12/27/16 11:26: Bedside Glucose (Misc Panel) 268H 12/27/16 16:47: Bedside Glucose (Misc Panel) 152H 12/27/16 19:47: Bedside Glucose (Misc Panel) 433H 12/28/16 06:32: Anion Gap 5L, White Blood Count 7.7, Red Blood Count 4.08, Hemoglobin 11.6L, Hematocrit 36.5, Mean Corpuscular Volume 89.7, Mean Corpuscular Hemoglobin 28.5 , Mean Corpuscular Hemoglobin Concent 31.8L, Red Cell Distribution Width 15.4H, Platelet Count 432, Neutrophils (%) (Auto) 72.8H, Lymphocytes (%) (Auto) 18.0L, Monocytes (%) (Auto) 5.1H, Eosinophils (%) (Auto) 1.7, Basophils (%) (Auto) 0.3 , Neutrophils # (Auto) 5.6, Lymphocytes # (Auto) 1.6, Monocytes # (Auto) 0.4, Eosinophils # (Auto) 0.1, Basophils # (Auto) 0.0, Blood Urea Nitrogen 13, Creatinine 0.66, Sodium Level 139, Potassium Level 4.4, Chloride Level 98, Carbon Dioxide Level 36H, Calcium Level 8.8, Glomerular Filtration Rate > 60.0, Large Unclassified Cells # 0.2, Large Unclassified Cells % 2.2 FSBS Laboratory Tests Test 12/27/16 11:26 12/27/16 16:47 12/27/16 19:47 Range/Units Bedside Glucose (Misc Panel) 268 152 433 80-115 MG/DL Allergies Allergies: Coded Allergies: Ciprofloxacin (Verified Allergy, Unknown, 12/24/16) Sulfa Antibiotics (Verified Allergy, Unknown, 12/24/16) TAPE (Verified Allergy, Unknown, 12/24/16) Current Medications Current Medications Current Medications Acetaminophen (Tylenol Tab) 650 mg Q4HP PRN PO MILD PAIN (PS 1-4); Start at 14:30; Stop 01/23/17 at 14:29 Acetaminophen/ Hydrocodone Bitart (Driscoll, Anexsia 5/325) 1 tab Q4HP PRN PO MODERATE/SEVERE PAIN (PS 5-10) Last administered on 12/25/16 02:02; Start 12/24 at 14:30; Stop 12/31/16 at 14:29 Acetaminophen/ Hydrocodone Bitart (Driscoll, Anexsia 5/325) 2 tab Q4HP PRN PO SEVERE PAIN (PS 8-10) Last administered on 12/28/16 08:21; Start 12/24/16 at 14 :30; Stop 12/31/16 at 14:29 Albuterol Sulfate (Proventil, Ventolin Hfa) 2 puff Q4HP PRN INH SHORTNESS OF BREATH; Start 12/24/16 at 14:30; Stop 01/23/17 at 14:29 Amlodipine Besylate (Norvasc) 5 mg DAILY PO Last administered on 12/28/16 08: 18; Start 12/25/16 at 09:00; Stop 12/28/16 at 11:15; Status DC Amlodipine Besylate (Norvasc) 5 mg QHS PO ; Start 12/29/16 at 21:00; Stop at 20:59 Carvedilol (COReg) 25 mg DAILY PO Last administered on 12/28/16 08:17; Start 12/25/16 at 09:00; Stop 01/24/17 at 08:59 Clopidogrel Bisulfate (PLAVix) 75 mg DAILY PO Last administered on 12/28/16 08 :18; Start 12/25/16 at 09:00; Stop 01/24/17 at 08:59 Dextrose (Dextrose 50%) 25 ml ASDIRECTED PRN IV SEE LABEL COMMENTS; Start 12/24 at 14:30; Stop 01/23/17 at 14:29 Docusate Sodium (Colace) 100 mg BID PO Last administered on 12/28/16 08:17; Start 12/24/16 at 21:00; Stop 01/23/17 at 20:59 Duloxetine HCl (Cymbalta) 60 mg DAILY PO Last administered on 12/28/16 08:18; Start 12/25/16 at 09:00; Stop 01/24/17 at 08:59 EZETIMIBE (Zetia) 10 mg DAILY PO Last administered on 12/28/16 08:18; Start at 09:00; Stop 01/24/17 at 08:59 Gabapentin (Neurontin) 600 mg Q8H PO Last administered on 12/28/16 05:20; Start 12/24/16 at 14:00; Stop 12/28/16 at 09:38; Status DC Gabapentin (Neurontin) 800 mg Q8H PO ; Start 12/28/16 at 14:00; Stop 01/27/17 at 13:59 Glucagon (Glucagon) 1 mg ASDIRECTED PRN SC SEE LABEL COMMENTS; Start 12/24/16 at 14:30; Stop 01/23/17 at 14:29 Glucose (Glucose) 16 GM ASDIRECTED PRN PO SEE LABEL COMMENTS; Start 12/24/16 at 14:30; Stop 01/23/17 at 14:29 Home Med (Med Rec Complete!) ASDIRECTED XX ; Start 12/24/16 at 17:00; Stop at 17:00; Status DC Insulin Detemir (Levemir Insulin) 20 units QHS SC Last administered on 21:47; Start 12/24/16 at 21:00; Stop 12/27/16 at 12:18; Status DC Insulin Detemir (Levemir Insulin) 25 units QHS SC Last administered on 20:01; Start 12/27/16 at 21:00; Stop 01/26/17 at 20:59 Insulin Human Lispro (HumaLOG INSULIN) See Protocol Table AC SC Last administered on 12/28/16 08:17; Start 12/24/16 at 17:30; Stop 01/23/17 at 17:29 Insulin Human Lispro (HumaLOG INSULIN) See Protocol Table QHS SC Last administered on 12/27/16 20:02; Start 12/24/16 at 21:00; Stop 01/23/17 at 20:59 Latanoprost (Xalatan 0.005% Op Soln) 1 drop QHS OU Last administered on 19:57; Start 12/24/16 at 21:00; Stop 01/23/17 at 20:59 Losartan Potassium (Cozaar) 50 mg DAILY PO Last administered on 12/28/16 08:18 ; Start 12/25/16 at 09:00; Stop 01/24/17 at 08:59 Magnesium Hydroxide (Milk Of Magnesia) 30 ml DAILYPRN PRN PO CONSTIPATION Last administered on 12/26/16 08:17; Start 12/24/16 at 14:30; Stop 01/23/17 at 14:29 Multivitamins (Theragram-M) 1 tab DAILY PO Last administered on 12/28/16 08:18 ; Start 12/25/16 at 09:00; Stop 01/24/17 at 08:59 Pantoprazole Sodium (Protonix) 40 mg DAILY PO Last administered on 12/28/16 08 :18; Start 12/25/16 at 09:00; Stop 01/24/17 at 08:59 Polyethylene Glycol (Miralax) 1 pkt DAILY PRN PO CONSTIPATION Last administered on 12/25/16 17:34; Start 12/24/16 at 14:30; Stop 01/23/17 at 14:29 Rivaroxaban (Xarelto) 20 mg DAILY@18 PO Last administered on 12/27/16 17:05; Start 12/24/16 at 18:00; Stop 12/31/16 at 17:59 Rosuvastatin Calcium (Crestor) 10 mg DAILY PO Last administered on 12/28/16 08 :18; Start 12/25/16 at 09:00; Stop 01/24/17 at 08:59 Salmeterol Xinafoate/ Fluticasone (Advair Hfa 115/ 21) 2 puff BID INH Last administered on 12/28/16 07:56; Start 12/24/16 at 21:00; Stop 01/23/17 at 20:59 Senna (Senokot) 1 tab QHS PO Last administered on 12/27/16 19:58; Start at 21:00; Stop 01/23/17 at 20:59 Tiotropium [place] (Spiriva Handihaler) 1 inhalation DAILY@08 INH Last administered on 12/27/16 14:26; Start 12/27/16 at 08:00; Stop 01/26/17 at 07:59 Tiotropium [place] (Spiriva Handihaler) 1 inhalation QPM INH Last administered on 12/26/16 14:10; Start 12/24/16 at 21:00; Stop 12/27/16 at 09:08; Status DC Torsemide (Demadex) 20 mg DAILY PO Last administered on 12/28/16 08:18; Start 12/25/16 at 09:00; Stop 01/24/17 at 08:59 Vitamin D (Vitamin D) 2,000 units DAILY PO Last administered on 12/28/16 08:18 ; Start 12/25/16 at 09:00; Stop 01/24/17 at 08:59 LINDA GIBSON MD Dec 28, 2016 11:22
[2016-12-28 14:00] VITALS: BP 101/53
[2016-12-28] MEDS: GABAPENTIN 400 MG CAP PO SCH ×2 (14:31→20:57)
[2016-12-28] MEDS: RIVAROXABAN 20 MG TAB (XARELTO) PO SCH (17:09)
[2016-12-28] MEDS: ACETAMINOPHEN TAB 650MG DOSE (2X325MG) PO PRN (19:42)
[2016-12-28 20:00] VITALS: BP 122/61
[2016-12-28] MEDS: SENNA 8.6 MG TAB (SENOKOT) PO SCH (20:57)
[2016-12-28] MEDS: LATANOPROST 0.005% OPHTH SOLN 2.5 ML OU SCH (20:59)
[2016-12-28] MEDS: LEVEMIR (INSULIN DETEMIR) 1 UNITS/0.01ML SC SCH (20:59)
[2016-12-29 06:00] VITALS: BP 140/63
[2016-12-29] MEDS: GABAPENTIN 400 MG CAP PO SCH ×3 (06:39→21:38)
[2016-12-29] MEDS: NORCO, ANEXSIA 5/325MG TABLET (HYDROcodone/ACETAMINOPHEN) PO PRN ×3 (06:39→20:42)
[2016-12-29] MEDS: HumaLOG INSULIN (NovoLOG) PER UNIT SC SCH ×4 (08:21→20:50)
[2016-12-29] MEDS: CLOPIDOGREL 75 MG TAB PO SCH (08:22)
[2016-12-29] MEDS: LOSARTAN 50 MG TAB PO SCH (08:22)
[2016-12-29] MEDS: DOCUSATE SODIUM 100 MG CAP PO SCH ×2 (08:22→20:40)
[2016-12-29] MEDS: PANTOPRAZOLE 40MG TAB (PROTONIX) PO SCH (08:22)
[2016-12-29] MEDS: MULTIVITAMINS/MINERALS THERAP 1 TAB PO SCH (08:22)
[2016-12-29] MEDS: EZETIMIBE 10 MG TAB (ZETIA) PO SCH (08:22)
[2016-12-29] MEDS: DULoxetine 30 MG CAP (CYMBALTA) PO SCH (08:22)
[2016-12-29] MEDS: CARVedilol 12.5 MG TAB PO SCH (08:23)
[2016-12-29] MEDS: VITAMIN D 1,000 INTERNATIONAL UNITS TABLET PO SCH (08:25)
[2016-12-29] MEDS: TORSEMIDE 20 MG TAB PO SCH (08:25)
[2016-12-29] MEDS: ROSUVASTATIN 10 MG TAB (CRESTOR) PO SCH (08:26)
[2016-12-29] MEDS: TIOTROPIUM INHALER/CAPSULE (SPIRIVA) INH SCH (08:34)
[2016-12-29] MEDS: ADVAIR HFA 115/21 INHALER INH SCH ×2 (08:34→21:38)
[2016-12-29] MEDS: LEVEMIR (INSULIN DETEMIR) 1 UNITS/0.01ML SC SCH ×2 (09:10→20:41)
--- NOTE | 2016-12-29 09:54 | IPNPDOC ---
[facility] Progress Note PROGRESS NOTE DATE OF ADMISSION: 12/24/16 DATE OF SERVICE: 12/29/16 PCP: Ovidio Ascencio DO [phone] Vascular Surgeon: Rj Bernrado MD [phone] IDENTIFICATION STATEMENT: Patient is a 66-year-old woman multiple medical comorbidities status post left [id number] amputation admitted for comprehensive integrated inpatient rehabilitation. PAST MEDICAL HISTORY: Hypertension Hyperlipidemia Diabetes mellitus type 1 [per patient, last hemoglobin A1c a few weeks ago and was > 8] Coronary artery disease Aortic stenosis Congestive heart failure Peripheral artery disease Phlebitis Peripheral neuropathy COPD Asthma Gastroesophageal reflux Glaucoma Cataracts, bilaterally Macular degeneration, left eye Anxiety/depression Nicotine dependence Heavy alcohol use Sleep apnea on CPAP Arthritis PAST SURGICAL HISTORY: section 2 Bilateral carpal tunnel release Hysterectomy Dilatation and curettage of the uterus Right JOVITA stent 06/04/2005 Bilateral femoral popliteal artery bypass 07/01/2005 Coronary artery stent placement (prior to bypass) Coronary artery bypass graft and aortic valve(pig-valve) replacement January 2012 Left SFA angioplasty and stent 09/12/2012 Femoral to below the knee popliteal bypass on the left secondary to occluded prior bypass Right SFA angioplasty and stent 11/11/2014 Right leg thrombolysis 06/23/2015 Left leg thrombolysis August 2015 Pr vein bypass graft, fem-dorsalis pedis; exlp left ant tib 11/18/2015 Left runoff, thrombolysis the left leg arterial bypass, left dorsalis pedis balloon angioplasty 10/12/2017 ALLERGIES: Ciprofloxacin & sulfa antibiotics give her hives Tape tends to tear her skin MEDICATIONS: Plavix 75 mg daily Xarelto 1 tab daily Protonix 40mg daily Norvasc 5 mg daily Coreg 25 mg by mouth daily Demadex 20 mg daily Vitamin D 2000 units by mouth daily Cymbalta 60 mg daily Zetia 10 mg daily Detrimir 20u SQ qhs Advair Diskus 2 puffs 2 times a day Neurontin 800 mg 3 times a day Colace 100 mg twice a day MiraLAX 1 packet daily prn Ventolin 2 puffs every 4 hours as needed for shortness of breath Lumigan 0.1% one drop each eye nightly Clobetasol 0.05% topically bid [place] 1-2 tabs PO q4h prn Insulin sliding scale before meals and at bedtime Cozaar 50 mg daily Multivitamin 1 tab daily Crestor 10 mg daily Spiriva 18 g 1 capsule nightly SUBJECTIVE: Patient w/o new complaints, still with phantom limb pain, but feels as if increased gabapentin helping. Denies any CP, SOB, N/V, diaphoresis, lightheadedness, dysuria, C/D. VITAL SIGNS: 97.9F, pulse 89, respiratory rate 18, 140/63, 95% saturation on room air. Wt 49.1kg PHYSICAL EXAMINATION: GENERAL: Well nourished, well developed, sitting in WC, no acute distress. HEENT: Normocephalic, atraumatic. No jugular venous distention (JVD). PERRL, EOMI CARDIOVASCULAR: S1, S2, regular rate. Left AKA -residual limb with sutures and oscar, no discharge or erythema, appears to be healing well. No swelling or calf edema on the right lower limb LUNGS: Decreased breath sounds throughout, but clear to auscultation bilaterally no wheezing, rhonchi rales. ABDOMEN: Soft, nontender, nondistended. Positive normoactive bowel sounds throughout. MUSCULOSKELETAL: Diffuse osteoarthritic changes in the PIP and DIP joints of the hands. MMT: 5/5 strength bilateral upper limbs and right lower limb in all major muscle groups. 3/5 strength left hip flexors (give way) NEUROLOGICAL: Alert and oriented x 3. Answers all questions appropriately. Memory intact. Able to follow commands without difficulty. SKIN: 3 cm skin abrasion with scab on the left distal forearm healing, surgical site left residual limb, clean and intact with sutures and oscar. LABORATORY DATA: 12/28/16: re-reviewed, see below BG reviewed FUNCTIONAL STATUS: Premorbid: Independent with ADLs and transfers. On Admission: Moderate assist for bed mobility, total assist for repositioning, moderate assist for transfers ASSESSMENT AND PLAN: 1. Left ischemic leg secondary to peripheral artery disease status post left [id number] amputation now with decreased mobility and dysfunctional ADLs: NWB on the left lower limb. Continue Plavix and anticoagulation with Xarelto. Patient continues to make progress. Continue daily physical and occupational therapy. Rehabilitation nursing for bladder, bowel, medication management and wound care. Follow-up appointment with her vascular surgeon, Dr. Bernardo post discharge and snuff grinder and screener. 2. Pain: Persistent phantom pain reportedly responding to gabapentin. Continue current dose gabapentin , 800mg q8h. Continue acetaminophen and [place] on an as- needed basis. Intermittent ice to the left residual limb. Further adjustments as needed 3. Bowel: Continue bowel regimen to include Colace and senna scheduled along with milk of magnesia on an as-needed basis. 4. Cardiac/coronary artery disease/valvular heart disease/congestive heart failure: Weight down again today. Will obtain am labs to check renal function. Continue daily weights. Continue her regular cardiac meds for now including Coreg, Xarelto, Plavix, Cozaar, Crestor and Demadex [Hx; although due to relative hypertension/ hypotension, changed Norvasc to qpm on 12/28/16]. 5. DVT prophylaxis: Patient anticoagulated with Xarelto. 6. GI prophylaxis: Continue Protonix daily while in the hospital. 7. Pulmonary (COPD, asthma, sleep apnea): Maintain patient on her inhalers, Proventil, Advair, Spiriva. Continue CPAP at night. 8. Diabetes mellitus type 2: Goal for tight BG control to facilitate healing. Started am dose long-acting based on BG and SSI demand. [Hx: s/p increase evening dose long-acting insulin 12/27/16]. Continue insulin sliding scale before meals and at bedtime. Carb consistent diet. 9. Depression: Controlled. Continue Cymbalta 10. Alcohol and tobacco dependence: No signs or symptoms of withdrawal. 11. Diet/severe malnutrition: Prealbumin low. Continue Glucerna supplements. Maintain carbohydrate consistent diet. / Vital Signs Vital Sign - Last 24 Hours 12/28/16 12/28/16 12/28/16 12/28/16 10:07 10:08 10:09 12:52 Resp 20 B/P 89/53 90/51 79/47 12/28/16 12/28/16 12/28/16 12/28/16 14:00 17:09 20:00 20:00 Temp 98.5 98.2 Pulse 83 83 Resp 18 20 18 B/P 101/53 122/61 Pulse Ox 94 91 O2 Delivery Room Air Room Air Room Air 12/28/16 12/28/16 12/29/16 12/29/16 20:58 21:28 06:00 06:39 Temp 97.9 Pulse 89 Resp 16 16 18 16 B/P 140/63 Pulse Ox 95 O2 Delivery Nasal Cannula O2 Flow Rate 2.0 12/29/16 12/29/16 12/29/16 12/29/16 07:10 08:22 08:23 08:30 Pulse 89 Resp 18 B/P 140/63 140/63 O2 Delivery Room Air Room Air Laboratory Data Labs 24H Laboratory Tests 2 12/28/16 11:07: Bedside Glucose (Misc Panel) 216H 12/28/16 16:36: Bedside Glucose (Misc Panel) 328H 12/28/16 18:42: Bedside Glucose (Misc Panel) 428H 12/29/16 05:00: Bedside Glucose (Misc Panel) 135H FSBS Laboratory Tests Test 12/28/16 11:07 12/28/16 16:36 12/28/16 18:42 12/29/16 05:00 Range/Units Bedside Glucose (Misc Panel) 216 328 428 135 80-115 MG/DL Allergies Allergies: Coded Allergies: Ciprofloxacin (Verified Allergy, Unknown, 12/24/16) Sulfa Antibiotics (Verified Allergy, Unknown, 12/24/16) TAPE (Verified Allergy, Unknown, 12/24/16) Current Medications Current Medications Current Medications Acetaminophen (Tylenol Tab) 650 mg Q4HP PRN PO MILD PAIN (PS 1-4) Last administered on 12/28/16 19:42; Start 12/24/16 at 14:30; Stop 01/23/17 at 14:29 Acetaminophen/ Hydrocodone Bitart ([place], Anexsia 5/325) 1 tab Q4HP PRN PO MODERATE/SEVERE PAIN (PS 5-10) Last administered on 12/29/16 06:39; Start 12/24 at 14:30; Stop 12/31/16 at 14:29 Acetaminophen/ Hydrocodone Bitart ([place], Anexsia 5/325) 2 tab Q4HP PRN PO SEVERE PAIN (PS 8-10) Last administered on 12/28/16 20:58; Start 12/24/16 at 14 :30; Stop 12/31/16 at 14:29 Albuterol Sulfate (Proventil, Ventolin Hfa) 2 puff Q4HP PRN INH SHORTNESS OF BREATH; Start 12/24/16 at 14:30; Stop 01/23/17 at 14:29 Amlodipine Besylate (Norvasc) 5 mg DAILY PO Last administered on 12/28/16 08: 18; Start 12/25/16 at 09:00; Stop 12/28/16 at 11:15; Status DC Amlodipine Besylate (Norvasc) 5 mg QHS PO ; Start 12/29/16 at 21:00; Stop at 20:59 Carvedilol (COReg) 25 mg DAILY PO Last administered on 12/29/16 08:23; Start 12/25/16 at 09:00; Stop 01/24/17 at 08:59 Clopidogrel Bisulfate (PLAVix) 75 mg DAILY PO Last administered on 12/29/16 08 :22; Start 12/25/16 at 09:00; Stop 01/24/17 at 08:59 Dextrose (Dextrose 50%) 25 ml ASDIRECTED PRN IV SEE LABEL COMMENTS; Start 12/24 at 14:30; Stop 01/23/17 at 14:29 Docusate Sodium (Colace) 100 mg BID PO Last administered on 12/29/16 08:22; Start 12/24/16 at 21:00; Stop 01/23/17 at 20:59 Duloxetine HCl (Cymbalta) 60 mg DAILY PO Last administered on 12/29/16 08:22; Start 12/25/16 at 09:00; Stop 01/24/17 at 08:59 EZETIMIBE (Zetia) 10 mg DAILY PO Last administered on 12/29/16 08:22; Start at 09:00; Stop 01/24/17 at 08:59 Gabapentin (Neurontin) 600 mg Q8H PO Last administered on 12/28/16 05:20; Start 12/24/16 at 14:00; Stop 12/28/16 at 09:38; Status DC Gabapentin (Neurontin) 800 mg Q8H PO Last administered on 12/29/16 06:39; Start 12/28/16 at 14:00; Stop 01/27/17 at 13:59 Glucagon (Glucagon) 1 mg ASDIRECTED PRN SC SEE LABEL COMMENTS; Start 12/24/16 at 14:30; Stop 01/23/17 at 14:29 Glucose (Glucose) 16 GM ASDIRECTED PRN PO SEE LABEL COMMENTS; Start 12/24/16 at 14:30; Stop 01/23/17 at 14:29 Home Med (Med Rec Complete!) ASDIRECTED XX ; Start 12/24/16 at 17:00; Stop at 17:00; Status DC Insulin Detemir (Levemir Insulin) 5 units DAILY SC Last administered on 09:10; Start 12/29/16 at 09:00; Stop 01/28/17 at 08:59 Insulin Detemir (Levemir Insulin) 20 units QHS SC Last administered on 21:47; Start 12/24/16 at 21:00; Stop 12/27/16 at 12:18; Status DC Insulin Detemir (Levemir Insulin) 25 units QHS SC Last administered on 20:59; Start 12/27/16 at 21:00; Stop 01/26/17 at 20:59 Insulin Human Lispro (HumaLOG INSULIN) See Protocol Table AC SC Last administered on 12/29/16 08:21; Start 12/24/16 at 17:30; Stop 01/23/17 at 17:29 Insulin Human Lispro (HumaLOG INSULIN) See Protocol Table QHS SC Last administered on 12/28/16 20:59; Start 12/24/16 at 21:00; Stop 01/23/17 at 20:59 Latanoprost (Xalatan 0.005% Op Soln) 1 drop QHS OU Last administered on 20:59; Start 12/24/16 at 21:00; Stop 01/23/17 at 20:59 Losartan Potassium (Cozaar) 50 mg DAILY PO Last administered on 12/29/16 08:22 ; Start 12/25/16 at 09:00; Stop 01/24/17 at 08:59 Magnesium Hydroxide (Milk Of Magnesia) 30 ml DAILYPRN PRN PO CONSTIPATION Last administered on 12/26/16 08:17; Start 12/24/16 at 14:30; Stop 01/23/17 at 14:29 Multivitamins (Theragram-M) 1 tab DAILY PO Last administered on 12/29/16 08:22 ; Start 12/25/16 at 09:00; Stop 01/24/17 at 08:59 Pantoprazole Sodium (Protonix) 40 mg DAILY PO Last administered on 12/29/16 08 :22; Start 12/25/16 at 09:00; Stop 01/24/17 at 08:59 Polyethylene Glycol (Miralax) 1 pkt DAILY PRN PO CONSTIPATION Last administered on 12/25/16 17:34; Start 12/24/16 at 14:30; Stop 01/23/17 at 14:29 Rivaroxaban (Xarelto) 20 mg DAILY@18 PO Last administered on 12/28/16 17:09; Start 12/24/16 at 18:00; Stop 12/31/16 at 17:59 Rosuvastatin Calcium (Crestor) 10 mg DAILY PO Last administered on 12/29/16 08 :26; Start 12/25/16 at 09:00; Stop 01/24/17 at 08:59 Salmeterol Xinafoate/ Fluticasone (Advair Hfa 115/ 21) 2 puff BID INH Last administered on 12/29/16 08:34; Start 12/24/16 at 21:00; Stop 01/23/17 at 20:59 Senna (Senokot) 1 tab QHS PO Last administered on 12/28/16 20:57; Start at 21:00; Stop 01/23/17 at 20:59 Tiotropium Irene (Spiriva Handihaler) 1 inhalation DAILY@08 INH Last administered on 12/29/16 08:34; Start 12/27/16 at 08:00; Stop 01/26/17 at 07:59 Tiotropium Irene (Spiriva Handihaler) 1 inhalation QPM INH Last administered on 12/26/16 14:10; Start 12/24/16 at 21:00; Stop 12/27/16 at 09:08; Status DC Torsemide (Demadex) 20 mg DAILY PO Last administered on 12/29/16 08:25; Start 12/25/16 at 09:00; Stop 01/24/17 at 08:59 Vitamin D (Vitamin D) 2,000 units DAILY PO Last administered on 12/29/16 08:25 ; Start 12/25/16 at 09:00; Stop 01/24/17 at 08:59 LINDA GIBSON MD Dec 29, 2016 09:54
[2016-12-29 14:00] VITALS: BP 127/53
[2016-12-29] MEDS: RIVAROXABAN 20 MG TAB (XARELTO) PO SCH (17:07)
[2016-12-29 20:00] VITALS: BP 120/77
[2016-12-29] MEDS: SENNA 8.6 MG TAB (SENOKOT) PO SCH (20:40)
[2016-12-29] MEDS: amLODIPine 5 MG TAB PO SCH (20:40)
[2016-12-29] MEDS: LATANOPROST 0.005% OPHTH SOLN 2.5 ML OU SCH (20:42)
[2016-12-30] MEDS: GABAPENTIN 400 MG CAP PO SCH ×3 (05:20→21:04)
[2016-12-30 06:00] VITALS: BP 132/61
[2016-12-30] MEDS: NORCO, ANEXSIA 5/325MG TABLET (HYDROcodone/ACETAMINOPHEN) PO PRN ×3 (06:02→21:40)
[2016-12-30 06:52] LABS: MEAN CORPUSCULAR HEMOGLOBIN 28.6 pg (27.0-33.0); MEAN CORPUSCULAR HGB CONC 31.3 g/dl (32.0-36.5); MEAN CORPUSCULAR VOLUME 91.3 fl (80.0-96.0); RED CELL DISTRIBUTION WIDTH 15.6 % (11.5-14.5); WHITE BLOOD COUNT 7.7 K/mm3 (4.0-10.0)
[2016-12-30] MEDS: HumaLOG INSULIN (NovoLOG) PER UNIT SC SCH ×4 (06:55→21:05)
[2016-12-30 07:14] LABS: ANION GAP 7 MEQ/L (8-16); BLOOD UREA NITROGEN 19 MG/DL (7-18); CALCIUM LEVEL 9.1 MG/DL (8.8-10.2); CARBON DIOXIDE LEVEL 34 MEQ/L (21-32); CHLORIDE LEVEL 99 MEQ/L (98-107); CREATININE FOR GFR 0.69 MG/DL (0.55-1.02); GLOMERULAR FILTRATION RATE > 60.0 (>45); GLUCOSE, FASTING 103 MG/DL (80-110); POTASSIUM SERUM 4.7 MEQ/L (3.5-5.1); SODIUM LEVEL 140 MEQ/L (136-145)
[2016-12-30] MEDS: TIOTROPIUM INHALER/CAPSULE (SPIRIVA) INH SCH (08:14)
[2016-12-30] MEDS: ADVAIR HFA 115/21 INHALER INH SCH ×2 (08:15→20:14)
[2016-12-30] MEDS: PANTOPRAZOLE 40MG TAB (PROTONIX) PO SCH (09:35)
[2016-12-30] MEDS: CLOPIDOGREL 75 MG TAB PO SCH (09:35)
[2016-12-30] MEDS: NYSTATIN 500,000 U/5 ML SUSP UDC PO SCH ×4 (09:35→21:05)
[2016-12-30] MEDS: ROSUVASTATIN 10 MG TAB (CRESTOR) PO SCH (09:36)
[2016-12-30] MEDS: DULoxetine 30 MG CAP (CYMBALTA) PO SCH (09:36)
[2016-12-30] MEDS: LOSARTAN 50 MG TAB PO SCH (09:36)
[2016-12-30] MEDS: DOCUSATE SODIUM 100 MG CAP PO SCH ×2 (09:36→21:04)
[2016-12-30] MEDS: MULTIVITAMINS/MINERALS THERAP 1 TAB PO SCH (09:36)
[2016-12-30] MEDS: VITAMIN D 1,000 INTERNATIONAL UNITS TABLET PO SCH (09:36)
[2016-12-30] MEDS: EZETIMIBE 10 MG TAB (ZETIA) PO SCH (09:36)
[2016-12-30] MEDS: CARVedilol 12.5 MG TAB PO SCH (09:37)
[2016-12-30] MEDS: LEVEMIR (INSULIN DETEMIR) 1 UNITS/0.01ML SC SCH ×2 (09:41→21:05)
[2016-12-30] MEDS: LIDOCAINE 5% (LIDODERM) PATCH TD SCH (09:41)
--- NOTE | 2016-12-30 10:14 | IPNPDOC ---
Sales Enablement Analyst Progress Note PROGRESS NOTE DATE OF ADMISSION: 12/24/16 DATE OF SERVICE: 12/30/16 PCP: Ovidio Ascencio DO [phone] Vascular Surgeon: Rj Bernardo MD [phone] IDENTIFICATION STATEMENT: Patient is a 66-year-old woman multiple medical comorbidities status post left [id number] amputation admitted for comprehensive integrated inpatient rehabilitation. PAST MEDICAL HISTORY: Hypertension Hyperlipidemia Diabetes mellitus type 1 [per patient, last hemoglobin A1c a few weeks ago and was > 8] Coronary artery disease Aortic stenosis Congestive heart failure Peripheral artery disease Phlebitis Peripheral neuropathy COPD Asthma Thrush/mouth sores Gastroesophageal reflux Glaucoma Cataracts, bilaterally Macular degeneration, left eye Anxiety/depression Nicotine dependence Heavy alcohol use Sleep apnea on CPAP Arthritis PAST SURGICAL HISTORY: section 2 Bilateral carpal tunnel release Hysterectomy Dilatation and curettage of the uterus Right JOVITA stent 06/04/2005 Bilateral femoral popliteal artery bypass 07/01/2005 Coronary artery stent placement (prior to bypass) Coronary artery bypass graft and aortic valve(pig-valve) replacement January 2012 Left SFA angioplasty and stent 09/12/2012 Femoral to below the knee popliteal bypass on the left secondary to occluded prior bypass Right SFA angioplasty and stent 11/11/2014 Right leg thrombolysis 06/23/2015 Left leg thrombolysis August 2015 Pr vein bypass graft, fem-dorsalis pedis; exlp left ant tib 11/18/2015 Left runoff, thrombolysis the left leg arterial bypass, left dorsalis pedis balloon angioplasty 10/12/2017 ALLERGIES: Ciprofloxacin & sulfa antibiotics give her hives Tape tends to tear her skin MEDICATIONS: Plavix 75 mg daily Xarelto 1 tab daily Protonix 40mg daily Norvasc 5 mg daily Coreg 25 mg by mouth daily Demadex 20 mg daily Vitamin D 2000 units by mouth daily Cymbalta 60 mg daily Zetia 10 mg daily Detrimir 20u SQ qhs Advair Diskus 2 puffs 2 times a day Neurontin 800 mg 3 times a day Colace 100 mg twice a day MiraLAX 1 packet daily prn Ventolin 2 puffs every 4 hours as needed for shortness of breath Lumigan 0.1% one drop each eye nightly Clobetasol 0.05% topically bid [place] 1-2 tabs PO q4h prn Insulin sliding scale before meals and at bedtime Cozaar 50 mg daily Multivitamin 1 tab daily Crestor 10 mg daily Spiriva 18 g 1 capsule nightly SUBJECTIVE: Patient reports mouth sores, states shes gotten them in the past that her doctor told her was related to her inhalers. Usually resolves with nystatin swish and swallow. States feels as if higher gabapentin helpful, but has sensitivity residual limb. No other issues. Denies any CP, SOB, N/V, diaphoresis, lightheadedness, dysuria, C/D. VITAL SIGNS: 97.9F, pulse 82, respiratory rate 18, 132/61, 98% saturation on room air. Wt 53.7kg PHYSICAL EXAMINATION: GENERAL: Well nourished, well developed, sitting in bed, no acute distress. HEENT: Normocephalic, atraumatic. + scatter small ulcers/lesions mouth, PERRL, EOMI CARDIOVASCULAR: S1, S2, regular rate. Left AKA -residual limb with sutures and oscar, no discharge or pus, appears to be healing well. No swelling or calf edema on the right lower limb LUNGS: Decreased breath sounds throughout, but clear to auscultation bilaterally no wheezing, rhonchi rales. ABDOMEN: Soft, nontender, nondistended. Positive normoactive bowel sounds throughout. MUSCULOSKELETAL: Diffuse osteoarthritic changes in the PIP and DIP joints of the hands. MMT: 5/5 strength bilateral upper limbs and right lower limb in all major muscle groups. 3/5 strength left hip flexors (give way) NEUROLOGICAL: Alert and oriented x 3. Answers all questions appropriately. Memory intact. Able to follow commands without difficulty. SKIN: 3 cm skin abrasion with scab on the left distal forearm healing, surgical site left residual limb, clean and intact with sutures and oscar. LABORATORY DATA: 12/30/16: reviewed, see below BG reviewed FUNCTIONAL STATUS: Premorbid: Independent with ADLs and transfers. On Admission: Moderate assist for bed mobility, total assist for repositioning, moderate assist for transfers ASSESSMENT AND PLAN: 1. Left ischemic leg secondary to peripheral artery disease status post left [id number] amputation now with decreased mobility and dysfunctional ADLs: NWB on the left lower limb. Continue Plavix and anticoagulation with Xarelto. Patient continues to make progress. Continue daily physical and occupational therapy. Rehabilitation nursing for bladder, bowel, medication management and wound care. Follow-up appointment with her vascular surgeon, Dr. Tova post discharge and client delivery specialist. 2. Pain: Persistent phantom pain reportedly responding to gabapentin. Now also sensitivity, will trial Lidoderm patch. Continue current dose gabapentin , 800mg q8h. Continue acetaminophen and [place] on an as-needed basis. Intermittent ice to the left residual limb. Further adjustments as needed 3. Bowel: Continue bowel regimen to include Colace and senna scheduled along with milk of magnesia on an as-needed basis. 4. Cardiac/coronary artery disease/valvular heart disease/congestive heart failure: Weight down. Mildly prerenal, will decrease dos torsimide. Continue daily weights. Continue her regular cardiac meds for now including Coreg, Xarelto, Plavix, Cozaar, Crestor [Hx; although due to relative hypertension/ hypotension, changed Norvasc to qpm on 12/28/16]. 5. DVT prophylaxis: Patient anticoagulated with Xarelto. 6. GI prophylaxis: Continue Protonix daily while in the hospital. 7. Pulmonary (COPD, asthma, sleep apnea): Maintain patient on her inhalers, Proventil, Advair, Spiriva. Continue CPAP at night. 8. Diabetes mellitus type 2: Improved BG control s/p adding morning dose detemir. Continue evening detimir (adjusted doses based on BGs). [Hx: s/p increase evening dose long-acting insulin 12/27/16]. Continue insulin sliding scale before meals and at bedtime. Carb consistent diet. 9. Depression: Controlled. Continue Cymbalta 10. Alcohol and tobacco dependence: No signs or symptoms of withdrawal. 11. Diet/severe malnutrition: Prealbumin low. Continue Glucerna supplements. Maintain carbohydrate consistent diet. 12. Mouth lesions: DDx: fungal vs viral. Will provide course nystatin S&S. / Vital Signs Vital Sign - Last 24 Hours 12/29/16 12/29/16 12/29/16 12/29/16 10:46 11:16 11:56 14:00 Temp 98.2 Pulse 87 Resp 18 18 B/P 127/53 Pulse Ox 97 95 O2 Delivery Room Air Room Air Room Air Room Air 12/29/16 12/29/16 12/29/16 12/29/16 20:00 20:00 20:40 20:42 Temp 98.0 Pulse 93 93 Resp 18 18 B/P 120/77 120/77 Pulse Ox 94 O2 Delivery Room Air Room Air 12/30/16 12/30/16 12/30/16 12/30/16 06:00 06:02 06:32 09:36 Temp 97.9 Pulse 82 Resp 17 18 18 B/P 132/61 132/61 Pulse Ox 98 O2 Delivery Nasal Cannula O2 Flow Rate 2.0 Laboratory Data CBC/BMP Laboratory Tests 12/30/16 06:37 Calcium Level 9.1, Red Blood Count 4.09, Mean Corpuscular Volume 91.3, Mean Corpuscular Hemoglobin 28.6, Mean Corpuscular Hemoglobin Concent 31.3 L, Red Cell Distribution Width 15.6 H Labs 24H Laboratory Tests 2 12/29/16 11:27: Bedside Glucose (Misc Panel) 269H 12/29/16 16:54: Bedside Glucose (Misc Panel) 256H 12/29/16 18:57: Bedside Glucose (Misc Panel) 212H 12/30/16 06:13: Bedside Glucose (Misc Panel) 75L 12/30/16 06:37: Anion Gap 7L, Blood Urea Nitrogen 19H, Creatinine 0.69, Sodium Level 140, Potassium Level 4.7, Chloride Level 99, Carbon Dioxide Level 34H, Calcium Level 9.1, Glomerular Filtration Rate > 60.0, Prealbumin 20.9 FSBS Laboratory Tests Test 12/29/16 11:27 12/29/16 16:54 12/29/16 18:57 12/30/16 06:13 Range/Units Bedside Glucose (Misc Panel) 269 256 212 75 80-115 MG/DL Allergies Allergies: Coded Allergies: Ciprofloxacin (Verified Allergy, Unknown, 12/24/16) Sulfa Antibiotics (Verified Allergy, Unknown, 12/24/16) TAPE (Verified Allergy, Unknown, 12/24/16) Current Medications Current Medications Current Medications Acetaminophen (Tylenol Tab) 650 mg Q4HP PRN PO MILD PAIN (PS 1-4) Last administered on 12/28/16 19:42; Start 12/24/16 at 14:30; Stop 01/23/17 at 14:29 Acetaminophen/ Hydrocodone Bitart ([place], Anexsia 5/325) 1 tab Q4HP PRN PO MODERATE/SEVERE PAIN (PS 5-10) Last administered on 12/29/16 06:39; Start 12/24 at 14:30; Stop 01/06/17 at 14:29 Acetaminophen/ Hydrocodone Bitart ([place], Anexsia 5/325) 2 tab Q4HP PRN PO SEVERE PAIN (PS 8-10) Last administered on 12/30/16 06:02; Start 12/24/16 at 14 :30; Stop 01/06/17 at 14:29 Albuterol Sulfate (Proventil, Ventolin Hfa) 2 puff Q4HP PRN INH SHORTNESS OF BREATH; Start 12/24/16 at 14:30; Stop 01/23/17 at 14:29 Amlodipine Besylate (Norvasc) 5 mg DAILY PO Last administered on 12/28/16 08: 18; Start 12/25/16 at 09:00; Stop 12/28/16 at 11:15; Status DC Amlodipine Besylate (Norvasc) 5 mg QHS PO Last administered on 12/29/16 20:40 ; Start 12/29/16 at 21:00; Stop 01/28/17 at 20:59 Carvedilol (COReg) 25 mg DAILY PO Last administered on 12/30/16 09:37; Start 12/25/16 at 09:00; Stop 01/24/17 at 08:59 Clopidogrel Bisulfate (PLAVix) 75 mg DAILY PO Last administered on 12/30/16 09 :35; Start 12/25/16 at 09:00; Stop 01/24/17 at 08:59 Dextrose (Dextrose 50%) 25 ml ASDIRECTED PRN IV SEE LABEL COMMENTS; Start 12/24 at 14:30; Stop 01/23/17 at 14:29 Docusate Sodium (Colace) 100 mg BID PO Last administered on 12/30/16 09:36; Start 12/24/16 at 21:00; Stop 01/23/17 at 20:59 Duloxetine HCl (Cymbalta) 60 mg DAILY PO Last administered on 12/30/16 09:36; Start 12/25/16 at 09:00; Stop 01/24/17 at 08:59 EZETIMIBE (Zetia) 10 mg DAILY PO Last administered on 12/30/16 09:36; Start at 09:00; Stop 01/24/17 at 08:59 Gabapentin (Neurontin) 600 mg Q8H PO Last administered on 12/28/16 05:20; Start 12/24/16 at 14:00; Stop 12/28/16 at 09:38; Status DC Gabapentin (Neurontin) 800 mg Q8H PO Last administered on 12/30/16 05:20; Start 12/28/16 at 14:00; Stop 01/27/17 at 13:59 Glucagon (Glucagon) 1 mg ASDIRECTED PRN SC SEE LABEL COMMENTS; Start 12/24/16 at 14:30; Stop 01/23/17 at 14:29 Glucose (Glucose) 16 GM ASDIRECTED PRN PO SEE LABEL COMMENTS; Start 12/24/16 at 14:30; Stop 01/23/17 at 14:29 Home Med (Med Rec Complete!) ASDIRECTED XX ; Start 12/24/16 at 17:00; Stop at 17:00; Status DC Insulin Detemir (Levemir Insulin) 5 units DAILY SC Last administered on 09:41; Start 12/29/16 at 09:00; Stop 12/30/16 at 10:13; Status DC Insulin Detemir (Levemir Insulin) 10 units DAILY SC ; Start 12/31/16 at 09:00; Stop 01/30/17 at 08:59; Status UNV Insulin Detemir (Levemir Insulin) 20 units QHS SC Last administered on 21:47; Start 12/24/16 at 21:00; Stop 12/27/16 at 12:18; Status DC Insulin Detemir (Levemir Insulin) 20 units QHS SC ; Start 12/30/16 at 21:00; Stop 01/29/17 at 20:59; Status UNV Insulin Detemir (Levemir Insulin) 25 units QHS SC Last administered on 20:41; Start 12/27/16 at 21:00; Stop 12/30/16 at 10:13; Status DC Insulin Human Lispro (HumaLOG INSULIN) See Protocol Table AC SC Last administered on 12/29/16 17:07; Start 12/24/16 at 17:30; Stop 01/23/17 at 17:29 Insulin Human Lispro (HumaLOG INSULIN) See Protocol Table QHS SC Last administered on 12/28/16 20:59; Start 12/24/16 at 21:00; Stop 01/23/17 at 20:59 Latanoprost (Xalatan 0.005% Op Soln) 1 drop QHS OU Last administered on 20:42; Start 12/24/16 at 21:00; Stop 01/23/17 at 20:59 Lidocaine (Lidoderm Patch) 1 patch DAILY TD Last administered on 12/30/16 09: 41; Start 12/30/16 at 09:00; Stop 01/29/17 at 08:59 Losartan Potassium (Cozaar) 50 mg DAILY PO Last administered on 12/30/16 09:36 ; Start 12/25/16 at 09:00; Stop 01/24/17 at 08:59 Magnesium Hydroxide (Milk Of Magnesia) 30 ml DAILYPRN PRN PO CONSTIPATION Last administered on 12/26/16 08:17; Start 12/24/16 at 14:30; Stop 01/23/17 at 14:29 Multivitamins (Theragram-M) 1 tab DAILY PO Last administered on 12/30/16 09:36 ; Start 12/25/16 at 09:00; Stop 01/24/17 at 08:59 Non-Formulary Medication ( See Comment Field Below ) REMOVE LIDODERM PATCH DAILY@21 XX ; Start 12/30/16 at 21:00; Stop 01/29/17 at 20:59 Nystatin (Mycostatin) 5 ml QID PO Last administered on 12/30/16 09:35; Start 12/30/16 at 09:00; Stop 01/06/17 at 08:59 Pantoprazole Sodium (Protonix) 40 mg DAILY PO Last administered on 12/30/16 09 :35; Start 12/25/16 at 09:00; Stop 01/24/17 at 08:59 Polyethylene Glycol (Miralax) 1 pkt DAILY PRN PO CONSTIPATION Last administered on 12/25/16 17:34; Start 12/24/16 at 14:30; Stop 01/23/17 at 14:29 Rivaroxaban (Xarelto) 20 mg DAILY@18 PO Last administered on 12/29/16 17:07; Start 12/24/16 at 18:00; Stop 01/06/17 at 17:59 Rosuvastatin Calcium (Crestor) 10 mg DAILY PO Last administered on 12/30/16 09 :36; Start 12/25/16 at 09:00; Stop 01/24/17 at 08:59 Salmeterol Xinafoate/ Fluticasone (Advair Hfa 115/ 21) 2 puff BID INH Last administered on 12/30/16 08:15; Start 12/24/16 at 21:00; Stop 01/23/17 at 20:59 Senna (Senokot) 1 tab QHS PO Last administered on 12/29/16 20:40; Start at 21:00; Stop 01/23/17 at 20:59 Tiotropium [place] (Spiriva Handihaler) 1 inhalation DAILY@08 INH Last administered on 12/30/16 08:14; Start 12/27/16 at 08:00; Stop 01/26/17 at 07:59 Tiotropium [place] (Spiriva Handihaler) 1 inhalation QPM INH Last administered on 12/26/16 14:10; Start 12/24/16 at 21:00; Stop 12/27/16 at 09:08; Status DC Torsemide (Demadex) 10 mg DAILY PO ; Start 12/30/16 at 09:00; Stop 01/29/17 at 08:59 Torsemide (Demadex) 20 mg DAILY PO Last administered on 12/29/16 08:25; Start 12/25/16 at 09:00; Stop 12/30/16 at 09:07; Status DC Vitamin D (Vitamin D) 2,000 units DAILY PO Last administered on 12/30/16 09:36 ; Start 12/25/16 at 09:00; Stop 01/24/17 at 08:59 LINDA GIBSON MD Dec 30, 2016 10:14
[2016-12-30] MEDS: TORSEMIDE 10 MG TABLET PO SCH (10:42)
[2016-12-30 14:00] VITALS: BP 100/52
[2016-12-30] MEDS: RIVAROXABAN 20 MG TAB (XARELTO) PO SCH (17:12)
[2016-12-30 20:00] VITALS: BP 135/62
[2016-12-30] MEDS: amLODIPine 5 MG TAB PO SCH (21:04)
[2016-12-30] MEDS: SENNA 8.6 MG TAB (SENOKOT) PO SCH (21:04)
[2016-12-30] MEDS: LATANOPROST 0.005% OPHTH SOLN 2.5 ML OU SCH (21:05)
[2016-12-30] MEDS: **NOTE PATIENT COMMENT** MISC XX SCH (21:42)
[2016-12-31 06:00] VITALS: BP 138/70
[2016-12-31] MEDS: GABAPENTIN 400 MG CAP PO SCH ×3 (06:24→22:08)
[2016-12-31 07:16] LABS: BASO % 0.3 % (0.0-1.0); EOS # 0.1 K/mm3 (0.0-0.50); EOS % 1.1 % (0.0-3.0); LARGE UNSTAINED CELL # 0.1 K/mm3 (0.0-0.4); LARGE UNSTAINED CELL % 2.5 % (0.0-4.0); LYMPH # 1.5 K/mm3 (1.5-4.5); LYMPH % 26.4 % (24.0-44.0); MEAN CORPUSCULAR HEMOGLOBIN 27.9 pg (27.0-33.0); MEAN CORPUSCULAR VOLUME 89.8 fl (80.0-96.0); MONO # 0.3 K/mm3 (0.0-0.8); MONO % 6.4 % (0.0-5.0); NEUTROPHILS # 3.2 K/mm3 (1.8-7.7); NEUTROPHILS % 63.4 % (36.0-66.0); PLATELET COUNT, AUTOMATED 468 k/mm3 (150-450); RED CELL DISTRIBUTION WIDTH 15.6 % (11.5-14.5); WHITE BLOOD COUNT 5.1 K/mm3 (4.0-10.0)
[2016-12-31 07:21] LABS: ANION GAP 7 MEQ/L (8-16); BLOOD UREA NITROGEN 18 MG/DL (7-18); CALCIUM LEVEL 9.5 MG/DL (8.8-10.2); CARBON DIOXIDE LEVEL 34 MEQ/L (21-32); CHLORIDE LEVEL 100 MEQ/L (98-107); CREATININE FOR GFR 0.71 MG/DL (0.55-1.02); GLOMERULAR FILTRATION RATE > 60.0 (>45); GLUCOSE, FASTING 191 MG/DL (80-110); POTASSIUM SERUM 4.5 MEQ/L (3.5-5.1); SODIUM LEVEL 141 MEQ/L (136-145)
[2016-12-31] MEDS: ADVAIR HFA 115/21 INHALER INH SCH ×2 (08:07→19:49)
[2016-12-31] MEDS: TIOTROPIUM INHALER/CAPSULE (SPIRIVA) INH SCH (08:08)
[2016-12-31] MEDS: LEVEMIR (INSULIN DETEMIR) 1 UNITS/0.01ML SC SCH ×2 (08:11→20:44)
[2016-12-31] MEDS: LIDOCAINE 5% (LIDODERM) PATCH TD SCH (08:12)
[2016-12-31] MEDS: NYSTATIN 500,000 U/5 ML SUSP UDC PO SCH ×4 (08:12→20:38)
[2016-12-31] MEDS: HumaLOG INSULIN (NovoLOG) PER UNIT SC SCH ×4 (08:12→20:45)
[2016-12-31] MEDS: CLOPIDOGREL 75 MG TAB PO SCH (08:13)
[2016-12-31] MEDS: MULTIVITAMINS/MINERALS THERAP 1 TAB PO SCH (08:13)
[2016-12-31] MEDS: DULoxetine 30 MG CAP (CYMBALTA) PO SCH (08:13)
[2016-12-31] MEDS: CARVedilol 12.5 MG TAB PO SCH (08:13)
[2016-12-31] MEDS: PANTOPRAZOLE 40MG TAB (PROTONIX) PO SCH (08:13)
[2016-12-31] MEDS: TORSEMIDE 10 MG TABLET PO SCH (08:13)
[2016-12-31] MEDS: VITAMIN D 1,000 INTERNATIONAL UNITS TABLET PO SCH (08:13)
[2016-12-31] MEDS: LOSARTAN 50 MG TAB PO SCH (08:13)
[2016-12-31] MEDS: EZETIMIBE 10 MG TAB (ZETIA) PO SCH (08:14)
[2016-12-31] MEDS: ROSUVASTATIN 10 MG TAB (CRESTOR) PO SCH (08:14)
[2016-12-31] MEDS: DOCUSATE SODIUM 100 MG CAP PO SCH ×3 (08:14→20:38)
[2016-12-31] MEDS: NORCO, ANEXSIA 5/325MG TABLET (HYDROcodone/ACETAMINOPHEN) PO PRN ×4 (08:17→22:11)
--- NOTE | 2016-12-31 12:24 | IPNPDOC ---
[employer] Progress Note PROGRESS NOTE DATE OF ADMISSION: 12/24/16 DATE OF SERVICE: 12/31/16 PCP: Ovidio Ascencio DO [phone] Vascular Surgeon: Rj Bernardo MD [phone] IDENTIFICATION STATEMENT: Patient is a 66-year-old woman multiple medical comorbidities status post left [id number] amputation admitted for comprehensive integrated inpatient rehabilitation. PAST MEDICAL HISTORY: Hypertension Hyperlipidemia Diabetes mellitus type 1 [per patient, last hemoglobin A1c a few weeks ago and was > 8] Coronary artery disease Aortic stenosis Congestive heart failure Peripheral artery disease Phlebitis Peripheral neuropathy COPD Asthma Thrush/mouth sores Gastroesophageal reflux Glaucoma Cataracts, bilaterally Macular degeneration, left eye Anxiety/depression Nicotine dependence Heavy alcohol use Sleep apnea on CPAP Arthritis PAST SURGICAL HISTORY: section 2 Bilateral carpal tunnel release Hysterectomy Dilatation and curettage of the uterus Right JOVITA stent 06/04/2005 Bilateral femoral popliteal artery bypass 07/01/2005 Coronary artery stent placement (prior to bypass) Coronary artery bypass graft and aortic valve(pig-valve) replacement January 2012 Left SFA angioplasty and stent 09/12/2012 Femoral to below the knee popliteal bypass on the left secondary to occluded prior bypass Right SFA angioplasty and stent 11/11/2014 Right leg thrombolysis 06/23/2015 Left leg thrombolysis August 2015 Pr vein bypass graft, fem-dorsalis pedis; exlp left ant tib 11/18/2015 Left runoff, thrombolysis the left leg arterial bypass, left dorsalis pedis balloon angioplasty 10/12/2017 ALLERGIES: Ciprofloxacin & sulfa antibiotics give her hives Tape tends to tear her skin MEDICATIONS: Plavix 75 mg daily Xarelto 1 tab daily Protonix 40mg daily Norvasc 5 mg daily Coreg 25 mg by mouth daily Demadex 10 mg daily Vitamin D 2000 units by mouth daily Cymbalta 60 mg daily Zetia 10 mg daily Detrimir 20u SQ qhs, 10U qam Insulin sliding scale before meals and at bedtime Spiriva 18 g 1 capsule nightly Advair Diskus 2 puffs 2 times a day Nystatin S&S Neurontin 800 mg 3 times a day Colace 100 mg twice a day MiraLAX 1 packet daily prn Ventolin 2 puffs every 4 hours as needed for shortness of breath Lumigan 0.1% one drop each eye nightly Clobetasol 0.05% topically bid [place] 1-2 tabs PO q4h prn Lidoderm patch to residual limb q12h on, q12h off Cozaar 50 mg daily Multivitamin 1 tab daily Crestor 10 mg daily SUBJECTIVE: Patient w/o complaints this morning. Feels ok, feels as if pain medication helpful. Hasnt moved bowels, no abdominal pain but feels like needs to go. No issues overnight. Denies any CP, SOB, N/V, diaphoresis, lightheadedness, dysuria, C/D. VITAL SIGNS: 97.8F, pulse 87, respiratory rate 20, 138/70, 98% saturation on room air. Wt 53kg PHYSICAL EXAMINATION: GENERAL: Well nourished, well developed, sitting in bed, no acute distress. HEENT: Normocephalic, atraumatic. + scatter small ulcers/lesions mouth ( unchanged), PERRL, EOMI CARDIOVASCULAR: S1, S2, regular rate. Left AKA -residual limb with sutures and oscar, no discharge or pus-healing well. No swelling or calf edema on the right lower limb LUNGS: Decreased breath sounds throughout, but clear to auscultation bilaterally no wheezing, rhonchi rales. ABDOMEN: Soft, nontender, nondistended. Positive normoactive bowel sounds throughout. MUSCULOSKELETAL: MMT: 5/5 strength bilateral upper limbs and right lower limb in all major muscle groups. 4+/5 strength left hip flexors NEUROLOGICAL: Alert and oriented x 3. Answers all questions appropriately. Memory intact. Able to follow commands without difficulty. SKIN: 3 cm skin abrasion with scab on the left distal forearm healing, surgical site left residual limb, clean and intact with sutures and oscar. LABORATORY DATA: 12/31/16: reviewed, see below BG reviewed FUNCTIONAL STATUS: Premorbid: Independent with ADLs and transfers. On Admission: Moderate assist for bed mobility, total assist for repositioning, moderate assist for transfers ASSESSMENT AND PLAN: 1. Left ischemic leg secondary to peripheral artery disease status post left [id number] amputation now with decreased mobility and dysfunctional ADLs: NWB on the left lower limb. Continue Plavix and anticoagulation with Xarelto. Patient continues to make progress. Discharged extended due to additional time needed to meet functional goals, continue need for medical care (pain management , oral lesions, fluid status, BG, constipation). Continue daily physical and occupational therapy. Rehabilitation nursing for bladder, bowel, medication management and wound care. Follow-up appointment with her vascular surgeon, Dr. Bernardo post discharge and director for [employer]. 2. Pain: Phantom pain seemingly responding to gabapentin. Lidoderm patch seems to be helpful for sensativity. Continue current dose gabapentin , 800mg q8h. Continue acetaminophen and [place] on an as-needed basis. Intermittent ice to the left residual limb. Further adjustments as needed 3. Bowel: Mildly constipated, likely 2nd immobility and opioids. Will increase Colace. Continue senna scheduled along with milk of magnesia on an as-needed basis. 4. Cardiac/coronary artery disease/valvular heart disease/congestive heart failure: Weight ~stable. Azotemia resolved s/p decrease torsimide 12/30/16. Continue daily weights. Continue her other cardiac meds including Coreg, Xarelto , Plavix, Cozaar, Crestor [Hx; due to relative hypertension/ hypotension, changed Norvasc to qpm on 12/28/16]. 5. DVT prophylaxis: Patient anticoagulated with Xarelto. 6. GI prophylaxis: Continue Protonix daily while in the hospital. 7. Pulmonary (COPD, asthma, sleep apnea): Maintain patient on her inhalers, Proventil, Advair, Spiriva. Continue CPAP at night. 8. Diabetes mellitus type 2: Improved BG control s/p adding morning dose detemir. Continue evening detimir (adjusted doses 12/30/16 based on BGs). [Hx: s/p increase evening dose long-acting insulin 12/27/16]. Continue insulin sliding scale before meals and at bedtime. Carb consistent diet. 9. Depression: Controlled. Continue Cymbalta 10. Alcohol and tobacco dependence: No signs or symptoms of withdrawal. 11. Diet/severe malnutrition: Prealbumin low. Continue Glucerna supplements. Maintain carbohydrate consistent diet. 12. Mouth lesions: DDx: fungal vs viral. Continue nystatin S&S. / Vital Signs Vital Sign - Last 24 Hours 12/30/16 12/30/16 12/30/16 12/30/16 14:00 17:33 18:06 20:00 Temp 98.6 98.8 Pulse 90 90 Resp 18 18 18 B/P 100/52 135/62 Pulse Ox 95 94 O2 Delivery Room Air Room Air Room Air 12/30/16 12/30/16 12/30/16 12/31/16 20:00 21:04 21:40 06:00 Temp 97.8 Pulse 87 87 Resp 18 18 B/P 114/58 138/70 Pulse Ox 96 O2 Delivery Room Air Room Air 12/31/16 12/31/16 12/31/16 12/31/16 08:00 08:13 08:13 08:17 Pulse 87 Resp 20 B/P 138/70 138/70 O2 Delivery Room Air Room Air 12/31/16 12/31/16 08:47 12:12 Resp 20 20 Laboratory Data CBC/BMP Laboratory Tests 12/31/16 06:52 Calcium Level 9.5, Red Blood Count 4.16, Mean Corpuscular Volume 89.8, Mean Corpuscular Hemoglobin 27.9, Mean Corpuscular Hemoglobin Concent 31.0 L, Red Cell Distribution Width 15.6 H, Neutrophils (%) (Auto) 63.4, Lymphocytes (%) ( Auto) 26.4, Monocytes (%) (Auto) 6.4 H, Eosinophils (%) (Auto) 1.1, Basophils (% ) (Auto) 0.3, Neutrophils # (Auto) 3.2, Lymphocytes # (Auto) 1.5, Monocytes # ( Auto) 0.3, Eosinophils # (Auto) 0.1, Basophils # (Auto) 0.0 Labs 24H Laboratory Tests 2 12/30/16 16:59: Bedside Glucose (Misc Panel) 252H 12/30/16 20:27: Bedside Glucose (Misc Panel) 373H 12/31/16 02:11: Bedside Glucose (Misc Panel) 195H 12/31/16 06:39: Bedside Glucose (Misc Panel) 183H 12/31/16 06:52: Anion Gap 7L, White Blood Count 5.1, Red Blood Count 4.16, Hemoglobin 11.6L, Hematocrit 37.4, Mean Corpuscular Volume 89.8, Mean Corpuscular Hemoglobin 27.9 , Mean Corpuscular Hemoglobin Concent 31.0L, Red Cell Distribution Width 15.6H, Platelet Count 468H, Neutrophils (%) (Auto) 63.4, Lymphocytes (%) (Auto) 26.4, Monocytes (%) (Auto) 6.4H, Eosinophils (%) (Auto) 1.1, Basophils (%) (Auto) 0.3 , Neutrophils # (Auto) 3.2, Lymphocytes # (Auto) 1.5, Monocytes # (Auto) 0.3, Eosinophils # (Auto) 0.1, Basophils # (Auto) 0.0, Blood Urea Nitrogen 18, Creatinine 0.71, Sodium Level 141, Potassium Level 4.5, Chloride Level 100, Carbon Dioxide Level 34H, Calcium Level 9.5, Glomerular Filtration Rate > 60.0, Large Unclassified Cells # 0.1, Large Unclassified Cells % 2.5 12/31/16 11:56: Bedside Glucose (Misc Panel) 203H FSBS Laboratory Tests Test 12/30/16 16:59 12/30/16 20:27 12/31/16 02:11 12/31/16 06:39 Range/Units Bedside Glucose (Misc Panel) 252 373 195 183 80-115 MG/DL Test 12/31/16 11:56 Range/Units Bedside Glucose (Misc Panel) 203 80-115 MG/DL Allergies Allergies: Coded Allergies: Ciprofloxacin (Verified Allergy, Unknown, 12/24/16) Sulfa Antibiotics (Verified Allergy, Unknown, 12/24/16) TAPE (Verified Allergy, Unknown, 12/24/16) Current Medications Current Medications Current Medications Acetaminophen (Tylenol Tab) 650 mg Q4HP PRN PO MILD PAIN (PS 1-4) Last administered on 12/28/16 19:42; Start 12/24/16 at 14:30; Stop 01/23/17 at 14:29 Acetaminophen/ Hydrocodone Bitart ([place], Anexsia 5/325) 1 tab Q4HP PRN PO MODERATE/SEVERE PAIN (PS 5-10) Last administered on 12/29/16 06:39; Start 12/24 at 14:30; Stop 01/06/17 at 14:29 Acetaminophen/ Hydrocodone Bitart ([place], Anexsia 5/325) 2 tab Q4HP PRN PO SEVERE PAIN (PS 8-10) Last administered on 12/31/16 12:12; Start 12/24/16 at 14 :30; Stop 01/06/17 at 14:29 Albuterol Sulfate (Proventil, Ventolin Hfa) 2 puff Q4HP PRN INH SHORTNESS OF BREATH; Start 12/24/16 at 14:30; Stop 01/23/17 at 14:29 Amlodipine Besylate (Norvasc) 5 mg DAILY PO Last administered on 12/28/16 08: 18; Start 12/25/16 at 09:00; Stop 12/28/16 at 11:15; Status DC Amlodipine Besylate (Norvasc) 5 mg QHS PO Last administered on 12/30/16 21:04 ; Start 12/29/16 at 21:00; Stop 01/28/17 at 20:59 Carvedilol (COReg) 25 mg DAILY PO Last administered on 12/31/16 08:13; Start 12/25/16 at 09:00; Stop 01/24/17 at 08:59 Clopidogrel Bisulfate (PLAVix) 75 mg DAILY PO Last administered on 12/31/16 08 :13; Start 12/25/16 at 09:00; Stop 01/24/17 at 08:59 Dextrose (Dextrose 50%) 25 ml ASDIRECTED PRN IV SEE LABEL COMMENTS; Start 12/24 at 14:30; Stop 01/23/17 at 14:29 Docusate Sodium (Colace) 100 mg BID PO Last administered on 12/31/16 08:14; Start 12/24/16 at 21:00; Stop 12/31/16 at 12:13; Status DC Docusate Sodium (Colace) 100 mg TID PO ; Start 12/31/16 at 16:00; Stop 01/30/17 at 15:59 Duloxetine HCl (Cymbalta) 60 mg DAILY PO Last administered on 12/31/16 08:13; Start 12/25/16 at 09:00; Stop 01/24/17 at 08:59 EZETIMIBE (Zetia) 10 mg DAILY PO Last administered on 12/31/16 08:14; Start at 09:00; Stop 01/24/17 at 08:59 Gabapentin (Neurontin) 600 mg Q8H PO Last administered on 12/28/16 05:20; Start 12/24/16 at 14:00; Stop 12/28/16 at 09:38; Status DC Gabapentin (Neurontin) 800 mg Q8H PO Last administered on 12/31/16 06:24; Start 12/28/16 at 14:00; Stop 01/27/17 at 13:59 Glucagon (Glucagon) 1 mg ASDIRECTED PRN SC SEE LABEL COMMENTS; Start 12/24/16 at 14:30; Stop 01/23/17 at 14:29 Glucose (Glucose) 16 GM ASDIRECTED PRN PO SEE LABEL COMMENTS; Start 12/24/16 at 14:30; Stop 01/23/17 at 14:29 Home Med (Med Rec Complete!) ASDIRECTED XX ; Start 12/24/16 at 17:00; Stop at 17:00; Status DC Insulin Detemir (Levemir Insulin) 5 units DAILY SC Last administered on 09:41; Start 12/29/16 at 09:00; Stop 12/30/16 at 10:13; Status DC Insulin Detemir (Levemir Insulin) 10 units DAILY SC Last administered on 08:11; Start 12/31/16 at 09:00; Stop 01/30/17 at 08:59 Insulin Detemir (Levemir Insulin) 20 units QHS SC Last administered on 21:47; Start 12/24/16 at 21:00; Stop 12/27/16 at 12:18; Status DC Insulin Detemir (Levemir Insulin) 20 units QHS SC Last administered on 21:05; Start 12/30/16 at 21:00; Stop 01/29/17 at 20:59 Insulin Detemir (Levemir Insulin) 25 units QHS SC Last administered on 20:41; Start 12/27/16 at 21:00; Stop 12/30/16 at 10:13; Status DC Insulin Human Lispro (HumaLOG INSULIN) See Protocol Table AC SC Last administered on 12/31/16 12:11; Start 12/24/16 at 17:30; Stop 01/23/17 at 17:29 Insulin Human Lispro (HumaLOG INSULIN) See Protocol Table QHS SC Last administered on 12/30/16 21:05; Start 12/24/16 at 21:00; Stop 01/23/17 at 20:59 Latanoprost (Xalatan 0.005% Op Soln) 1 drop QHS OU Last administered on 21:05; Start 12/24/16 at 21:00; Stop 01/23/17 at 20:59 Lidocaine (Lidoderm Patch) 1 patch DAILY TD Last administered on 12/31/16 08: 12; Start 12/30/16 at 09:00; Stop 01/29/17 at 08:59 Losartan Potassium (Cozaar) 50 mg DAILY PO Last administered on 12/31/16 08:13 ; Start 12/25/16 at 09:00; Stop 01/24/17 at 08:59 Magnesium Hydroxide (Milk Of Magnesia) 30 ml DAILYPRN PRN PO CONSTIPATION Last administered on 12/26/16 08:17; Start 12/24/16 at 14:30; Stop 01/23/17 at 14:29 Multivitamins (Theragram-M) 1 tab DAILY PO Last administered on 12/31/16 08:13 ; Start 12/25/16 at 09:00; Stop 01/24/17 at 08:59 Non-Formulary Medication ( See Comment Field Below ) REMOVE LIDODERM PATCH DAILY@21 XX Last administered on 12/30/16 21:42; Start 12/30/16 at 21:00; Stop 01/29/17 at 20:59 Nystatin (Mycostatin) 5 ml QID PO Last administered on 12/31/16 12:11; Start 12/30/16 at 09:00; Stop 01/06/17 at 08:59 Pantoprazole Sodium (Protonix) 40 mg DAILY PO Last administered on 12/31/16 08 :13; Start 12/25/16 at 09:00; Stop 01/24/17 at 08:59 Polyethylene Glycol (Miralax) 1 pkt DAILY PRN PO CONSTIPATION Last administered on 12/25/16 17:34; Start 12/24/16 at 14:30; Stop 01/23/17 at 14:29 Rivaroxaban (Xarelto) 20 mg DAILY@18 PO Last administered on 12/30/16 17:12; Start 12/24/16 at 18:00; Stop 01/06/17 at 17:59 Rosuvastatin Calcium (Crestor) 10 mg DAILY PO Last administered on 12/31/16 08 :14; Start 12/25/16 at 09:00; Stop 01/24/17 at 08:59 Salmeterol Xinafoate/ Fluticasone (Advair Hfa 115/ 21) 2 puff BID INH Last administered on 12/31/16 08:07; Start 12/24/16 at 21:00; Stop 01/23/17 at 20:59 Senna (Senokot) 1 tab QHS PO Last administered on 12/30/16 21:04; Start at 21:00; Stop 01/23/17 at 20:59 Tiotropium [place] (Spiriva Handihaler) 1 inhalation DAILY@08 INH Last administered on 12/31/16 08:08; Start 12/27/16 at 08:00; Stop 01/26/17 at 07:59 Tiotropium [place] (Spiriva Handihaler) 1 inhalation QPM INH Last administered on 12/26/16 14:10; Start 12/24/16 at 21:00; Stop 12/27/16 at 09:08; Status DC Torsemide (Demadex) 10 mg DAILY PO Last administered on 12/31/16 08:13; Start 12/30/16 at 09:00; Stop 01/29/17 at 08:59 Torsemide (Demadex) 20 mg DAILY PO Last administered on 12/29/16 08:25; Start 12/25/16 at 09:00; Stop 12/30/16 at 09:07; Status DC Vitamin D (Vitamin D) 2,000 units DAILY PO Last administered on 12/31/16 08:13 ; Start 12/25/16 at 09:00; Stop 01/24/17 at 08:59 LINDA GIBSON MD Dec 31, 2016 12:24
[2016-12-31 14:18] VITALS: BP 86/49
[2016-12-31] MEDS: RIVAROXABAN 20 MG TAB (XARELTO) PO SCH (17:17)
[2016-12-31 20:00] VITALS: BP 147/68
[2016-12-31] MEDS: LATANOPROST 0.005% OPHTH SOLN 2.5 ML OU SCH (20:37)
[2016-12-31] MEDS: SENNA 8.6 MG TAB (SENOKOT) PO SCH (20:39)
[2016-12-31] MEDS: amLODIPine 5 MG TAB PO SCH (20:43)
[2016-12-31] MEDS: **NOTE PATIENT COMMENT** MISC XX SCH (20:45)
[2017-01-01] VITALS: BP 144/68
[2017-01-01 06:00] VITALS: BP 154/63
[2017-01-01] MEDS: GABAPENTIN 400 MG CAP PO SCH ×3 (06:04→22:53)
[2017-01-01] MEDS: NORCO, ANEXSIA 5/325MG TABLET (HYDROcodone/ACETAMINOPHEN) PO PRN ×4 (06:07→20:17)
[2017-01-01] MEDS: HumaLOG INSULIN (NovoLOG) PER UNIT SC SCH ×4 (07:31→21:00)
[2017-01-01] MEDS: LEVEMIR (INSULIN DETEMIR) 1 UNITS/0.01ML SC SCH ×2 (07:31→20:12)
[2017-01-01] MEDS: MIRALAX *UNIT DOSE* 17GM PACKET PO PRN (07:34)
[2017-01-01] MEDS: NYSTATIN 500,000 U/5 ML SUSP UDC PO SCH ×4 (07:34→20:12)
[2017-01-01] MEDS: LIDOCAINE 5% (LIDODERM) PATCH TD SCH (07:34)
[2017-01-01] MEDS: DULoxetine 30 MG CAP (CYMBALTA) PO SCH (07:34)
[2017-01-01] MEDS: CLOPIDOGREL 75 MG TAB PO SCH (07:34)
[2017-01-01] MEDS: TORSEMIDE 10 MG TABLET PO SCH (07:35)
[2017-01-01] MEDS: VITAMIN D 1,000 INTERNATIONAL UNITS TABLET PO SCH (07:35)
[2017-01-01] MEDS: EZETIMIBE 10 MG TAB (ZETIA) PO SCH (07:35)
[2017-01-01] MEDS: PANTOPRAZOLE 40MG TAB (PROTONIX) PO SCH (07:35)
[2017-01-01] MEDS: MULTIVITAMINS/MINERALS THERAP 1 TAB PO SCH (07:35)
[2017-01-01] MEDS: ROSUVASTATIN 10 MG TAB (CRESTOR) PO SCH (07:35)
[2017-01-01] MEDS: LOSARTAN 25 MG TAB PO SCH (07:35)
[2017-01-01] MEDS: DOCUSATE SODIUM 100 MG CAP PO SCH ×3 (07:36→20:13)
[2017-01-01] MEDS: CARVedilol 12.5 MG TAB PO SCH (07:36)
[2017-01-01] MEDS: TIOTROPIUM INHALER/CAPSULE (SPIRIVA) INH SCH (09:48)
[2017-01-01] MEDS: ADVAIR HFA 115/21 INHALER INH SCH ×2 (09:49→20:35)
[2017-01-01 14:00] VITALS: BP 120/57
[2017-01-01] MEDS: RIVAROXABAN 20 MG TAB (XARELTO) PO SCH (17:15)
[2017-01-01 20:00] VITALS: BP 121/56
[2017-01-01] MEDS: SENNA 8.6 MG TAB (SENOKOT) PO SCH (20:13)
[2017-01-01] MEDS: amLODIPine 5 MG TAB PO SCH (20:13)
[2017-01-01] MEDS: LATANOPROST 0.005% OPHTH SOLN 2.5 ML OU SCH (20:14)
[2017-01-01] MEDS: **NOTE PATIENT COMMENT** MISC XX SCH (21:00)
[2017-01-02] VITALS: BP 120/54
[2017-01-02] MEDS: NORCO, ANEXSIA 5/325MG TABLET (HYDROcodone/ACETAMINOPHEN) PO PRN ×3 (01:42→21:21)
[2017-01-02 06:00] VITALS: BP 137/67
[2017-01-02] MEDS: GABAPENTIN 400 MG CAP PO SCH ×3 (06:22→21:20)
[2017-01-02 06:47] LABS: MEAN CORPUSCULAR HGB CONC 31.3 g/dl (32.0-36.5); MEAN CORPUSCULAR VOLUME 89.6 fl (80.0-96.0); RED CELL DISTRIBUTION WIDTH 15.5 % (11.5-14.5); WHITE BLOOD COUNT 4.9 K/mm3 (4.0-10.0)
[2017-01-02 07:02] LABS: ANION GAP 7 MEQ/L (8-16); BLOOD UREA NITROGEN 14 MG/DL (7-18); CALCIUM LEVEL 9.1 MG/DL (8.8-10.2); CARBON DIOXIDE LEVEL 33 MEQ/L (21-32); CHLORIDE LEVEL 101 MEQ/L (98-107); CREATININE FOR GFR 0.57 MG/DL (0.55-1.02); GLOMERULAR FILTRATION RATE > 60.0 (>45); GLUCOSE, FASTING 168 MG/DL (80-110); POTASSIUM SERUM 4.3 MEQ/L (3.5-5.1); SODIUM LEVEL 141 MEQ/L (136-145)
[2017-01-02] MEDS: ADVAIR HFA 115/21 INHALER INH SCH ×2 (07:39→19:26)
[2017-01-02] MEDS: TIOTROPIUM INHALER/CAPSULE (SPIRIVA) INH SCH (07:39)
[2017-01-02] MEDS: LIDOCAINE 5% (LIDODERM) PATCH TD SCH (08:30)
[2017-01-02] MEDS: LEVEMIR (INSULIN DETEMIR) 1 UNITS/0.01ML SC SCH ×2 (08:30→21:22)
[2017-01-02] MEDS: HumaLOG INSULIN (NovoLOG) PER UNIT SC SCH ×4 (08:30→21:21)
[2017-01-02] MEDS: NYSTATIN 500,000 U/5 ML SUSP UDC PO SCH ×4 (08:31→21:19)
[2017-01-02] MEDS: LOSARTAN 25 MG TAB PO SCH (08:31)
[2017-01-02] MEDS: VITAMIN D 1,000 INTERNATIONAL UNITS TABLET PO SCH (08:31)
[2017-01-02] MEDS: TORSEMIDE 10 MG TABLET PO SCH (08:31)
[2017-01-02] MEDS: CLOPIDOGREL 75 MG TAB PO SCH (08:32)
[2017-01-02] MEDS: ROSUVASTATIN 10 MG TAB (CRESTOR) PO SCH (08:32)
[2017-01-02] MEDS: CARVedilol 12.5 MG TAB PO SCH (08:32)
[2017-01-02] MEDS: DULoxetine 30 MG CAP (CYMBALTA) PO SCH (08:32)
[2017-01-02] MEDS: MULTIVITAMINS/MINERALS THERAP 1 TAB PO SCH (08:32)
[2017-01-02] MEDS: PANTOPRAZOLE 40MG TAB (PROTONIX) PO SCH (08:32)
[2017-01-02] MEDS: DOCUSATE SODIUM 100 MG CAP PO SCH ×3 (08:32→19:35)
[2017-01-02] MEDS: EZETIMIBE 10 MG TAB (ZETIA) PO SCH (08:32)
[2017-01-02 14:00] VITALS: BP 123/61
[2017-01-02] MEDS: RIVAROXABAN 20 MG TAB (XARELTO) PO SCH (17:37)
[2017-01-02] MEDS: SENNA 8.6 MG TAB (SENOKOT) PO SCH (19:35)
[2017-01-02 20:00] VITALS: BP 129/60
[2017-01-02] MEDS: **NOTE PATIENT COMMENT** MISC XX SCH (21:00)
[2017-01-02] MEDS: amLODIPine 5 MG TAB PO SCH (21:20)
[2017-01-02] MEDS: LATANOPROST 0.005% OPHTH SOLN 2.5 ML OU SCH (21:22)
[2017-01-02] MEDS: ACETAMINOPHEN TAB 650MG DOSE (2X325MG) PO PRN (22:23)
[2017-01-03 06:00] VITALS: BP 153/70
[2017-01-03] MEDS: GABAPENTIN 400 MG CAP PO SCH ×3 (06:35→21:12)
[2017-01-03] MEDS: HumaLOG INSULIN (NovoLOG) PER UNIT SC SCH ×4 (06:58→20:38)
[2017-01-03] MEDS: ADVAIR HFA 115/21 INHALER INH SCH ×2 (07:37→21:35)
[2017-01-03] MEDS: TIOTROPIUM INHALER/CAPSULE (SPIRIVA) INH SCH (07:37)
[2017-01-03] MEDS: LIDOCAINE 5% (LIDODERM) PATCH TD SCH (08:17)
[2017-01-03] MEDS: NORCO, ANEXSIA 5/325MG TABLET (HYDROcodone/ACETAMINOPHEN) PO PRN ×2 (08:17→20:35)
[2017-01-03] MEDS: NYSTATIN 500,000 U/5 ML SUSP UDC PO SCH ×4 (08:17→20:37)
[2017-01-03] MEDS: LEVEMIR (INSULIN DETEMIR) 1 UNITS/0.01ML SC SCH ×2 (08:18→20:37)
[2017-01-03] MEDS: DOCUSATE SODIUM 100 MG CAP PO SCH ×3 (08:18→20:36)
[2017-01-03] MEDS: MULTIVITAMINS/MINERALS THERAP 1 TAB PO SCH (08:19)
[2017-01-03] MEDS: CLOPIDOGREL 75 MG TAB PO SCH (08:19)
[2017-01-03] MEDS: TORSEMIDE 10 MG TABLET PO SCH (08:19)
[2017-01-03] MEDS: LOSARTAN 25 MG TAB PO SCH (08:19)
[2017-01-03] MEDS: EZETIMIBE 10 MG TAB (ZETIA) PO SCH (08:19)
[2017-01-03] MEDS: DULoxetine 30 MG CAP (CYMBALTA) PO SCH (08:20)
[2017-01-03] MEDS: ROSUVASTATIN 10 MG TAB (CRESTOR) PO SCH (08:20)
[2017-01-03] MEDS: PANTOPRAZOLE 40MG TAB (PROTONIX) PO SCH (08:20)
[2017-01-03] MEDS: CARVedilol 12.5 MG TAB PO SCH (08:20)
[2017-01-03] MEDS: VITAMIN D 1,000 INTERNATIONAL UNITS TABLET PO SCH (08:20)
--- NOTE | 2017-01-03 10:18 | IPNPDOC ---
Consulting Property Manager Progress Note PROGRESS NOTE DATE OF ADMISSION: 12/24/16 DATE OF SERVICE: 01/03/17 PCP: Ovidio Ascencio DO [phone] Vascular Surgeon: Rj Bernardo MD [phone] IDENTIFICATION STATEMENT: Patient is a 66-year-old woman multiple medical comorbidities status post left [id number] amputation admitted for comprehensive integrated inpatient rehabilitation. PAST MEDICAL HISTORY: Hypertension Hyperlipidemia Diabetes mellitus type 1 [per patient, last hemoglobin A1c a few weeks ago and was > 8] Coronary artery disease Aortic stenosis Congestive heart failure Peripheral artery disease Phlebitis Peripheral neuropathy COPD Asthma Thrush/mouth sores Gastroesophageal reflux Glaucoma Cataracts, bilaterally Macular degeneration, left eye Anxiety/depression Nicotine dependence Heavy alcohol use Sleep apnea on CPAP Arthritis PAST SURGICAL HISTORY: section 2 Bilateral carpal tunnel release Hysterectomy Dilatation and curettage of the uterus Right JOVITA stent 06/04/2005 Bilateral femoral popliteal artery bypass 07/01/2005 Coronary artery stent placement (prior to bypass) Coronary artery bypass graft and aortic valve(pig-valve) replacement January 2012 Left SFA angioplasty and stent 09/12/2012 Femoral to below the knee popliteal bypass on the left secondary to occluded prior bypass Right SFA angioplasty and stent 11/11/2014 Right leg thrombolysis 06/23/2015 Left leg thrombolysis August 2015 Pr vein bypass graft, fem-dorsalis pedis; exlp left ant tib 11/18/2015 Left runoff, thrombolysis the left leg arterial bypass, left dorsalis pedis balloon angioplasty 10/12/2017 ALLERGIES: Ciprofloxacin & sulfa antibiotics give her hives Tape tends to tear her skin MEDICATIONS: Plavix 75 mg daily Xarelto 1 tab daily Protonix 40mg daily Norvasc 5 mg daily Coreg 25 mg by mouth daily Demadex 10 mg daily Vitamin D 2000 units by mouth daily Cymbalta 60 mg daily Zetia 10 mg daily Detrimir 20u SQ qhs, 10U qam Insulin sliding scale before meals and at bedtime Spiriva 18 g 1 capsule nightly Advair Diskus 2 puffs 2 times a day Nystatin S&S Neurontin 800 mg 3 times a day Colace 100 mg twice a day MiraLAX 1 packet daily prn Ventolin 2 puffs every 4 hours as needed for shortness of breath Lumigan 0.1% one drop each eye nightly Clobetasol 0.05% topically bid [place] 1-2 tabs PO q4h prn Lidoderm patch to residual limb q12h on, q12h off Cozaar 50 mg daily Multivitamin 1 tab daily Crestor 10 mg daily SUBJECTIVE: Patient states redness residual limb around incision. + sensitivity. Current pain medications effective. Had BM yesterday. Denies any CP, SOB, N/V, diaphoresis, lightheadedness, dysuria, C/D. VITAL SIGNS: 97.8F, pulse 87, respiratory rate 20, 138/70, 98% saturation on room air. Wt 53.2kg PHYSICAL EXAMINATION: GENERAL: Well nourished, well developed, sitting in bed, no acute distress. HEENT: Normocephalic, atraumatic. + scatter small ulcers/lesions mouth ( unchanged), PERRL, EOMI CARDIOVASCULAR: S1, S2, regular rate. Left AKA -residual limb with sutures and oscar, +lg amount erythema where sutures in contact with skin, some worse than other, some staple with surrounding erythema, others with erythema only at staple insertion sites. No discharge or pus. No swelling or calf edema on the right lower limb LUNGS: Decreased breath sounds throughout, but clear to auscultation bilaterally no wheezing, rhonchi rales. ABDOMEN: Soft, nontender, nondistended. Positive normoactive bowel sounds throughout. MUSCULOSKELETAL: MMT: 5/5 strength bilateral upper limbs and right lower limb in all major muscle groups. 4+/5 strength left hip flexors NEUROLOGICAL: Alert and oriented x 3. Answers all questions appropriately. Memory intact. Able to follow commands without difficulty. SKIN: 3 cm skin abrasion with scab on the left distal forearm healing, surgical site left residual limb, intact with sutures and oscar. LABORATORY DATA: 01/02/17: reviewed, see below BG reviewed FUNCTIONAL STATUS: Premorbid: Independent with ADLs and transfers. On Admission: Moderate assist for bed mobility, total assist for repositioning, moderate assist for transfers ASSESSMENT AND PLAN: 1. Left ischemic leg secondary to peripheral artery disease status post left [id number] amputation now with decreased mobility and dysfunctional ADLs: NWB on the left lower limb. Continue Plavix and anticoagulation with Xarelto. Patient making progress. Patient having reaction to sutures so removed 3 sutures and 2 oscar where erythema most severe incision site intact. Will try to move up appointment with surgeon to this week. Continue daily physical and occupational therapy. Rehabilitation nursing for bladder, bowel, medication management and wound care. Follow-up appointment with engineering documentation specialist. 2. Pain: Phantom pain seemingly responding to gabapentin. Reaction to sutures may be contributing to sensitivity. Lidoderm patch seems to be helpful . Continue current dose gabapentin , 800mg q8h. Continue acetaminophen and [place] on an as-needed basis. Intermittent ice to the left residual limb. Further adjustments if needed 3. Bowel: Resolved s/p medication adjustments. Continue Colace and senna scheduled along with milk of magnesia on an as-needed basis. 4. Cardiac/coronary artery disease/valvular heart disease/congestive heart failure: Weight ~stable. Azotemia resolved s/p decrease torsimide 12/30/16. Continue daily weights. Continue her other cardiac meds including Coreg, Xarelto , Plavix, Cozaar, Crestor [Hx; due to relative hypertension/ hypotension, changed Norvasc to qpm on 12/28/16]. 5. DVT prophylaxis: Patient anticoagulated with Xarelto. 6. GI prophylaxis: Continue Protonix daily while in the hospital. 7. Pulmonary (COPD, asthma, sleep apnea): Maintain patient on her inhalers, Proventil, Advair, Spiriva. Continue CPAP at night. 8. Diabetes mellitus type 2: Improved BG control s/p adding morning dose detemir 12/30/16. Continue evening detimir (adjusted doses 12/30/16 based on BGs) . [Hx: s/p increase evening dose long-acting insulin 12/27/16]. Continue insulin sliding scale before meals and at bedtime. Carb consistent diet. 9. Depression: Controlled. Continue Cymbalta 10. Alcohol and tobacco dependence: No signs or symptoms of withdrawal. 11. Diet/severe malnutrition: Prealbumin improved. Continue Glucerna supplements. Maintain carbohydrate consistent diet. 12. Mouth lesions: Decreased. Continue nystatin S&S. / Vital Signs Vital Sign - Last 24 Hours 01/02/17 01/02/17 01/02/17 01/02/17 14:00 20:00 21:00 21:20 Temp 97.6 97.9 Pulse 92 92 92 Resp 18 18 B/P 123/61 129/60 129/60 Pulse Ox 96 92 O2 Delivery Room Air Room Air Room Air 01/02/17 01/02/17 01/03/17 01/03/17 21:21 21:51 06:00 07:45 Temp 97.4 Pulse 75 Resp 16 16 18 B/P 153/70 Pulse Ox 98 O2 Delivery NIPPV (BIPAP/CPAP) Room Air 01/03/17 01/03/17 01/03/17 01/03/17 08:17 08:19 08:20 08:48 Pulse 75 Resp 18 18 B/P 153/70 153/70 O2 Delivery Room Air Room Air Laboratory Data Labs 24H Laboratory Tests 2 01/02/17 11:37: Bedside Glucose (Misc Panel) 257H 01/02/17 16:42: Bedside Glucose (Misc Panel) 121H 01/02/17 20:31: Bedside Glucose (Misc Panel) 272H 01/03/17 05:41: Bedside Glucose (Misc Panel) 242H FSBS Laboratory Tests Test 01/02/17 11:37 01/02/17 16:42 01/02/17 20:31 01/03/17 05:41 Range/Units Bedside Glucose (Misc Panel) 257 121 272 242 80-115 MG/DL Allergies Allergies: Coded Allergies: Ciprofloxacin (Verified Allergy, Unknown, 12/24/16) Sulfa Antibiotics (Verified Allergy, Unknown, 12/24/16) TAPE (Verified Allergy, Unknown, 12/24/16) Current Medications Current Medications Current Medications Acetaminophen (Tylenol Tab) 650 mg Q4HP PRN PO MILD PAIN (PS 1-4) Last administered on 01/02/17 22:23; Start 12/24/16 at 14:30; Stop 01/23/17 at 14:29 Acetaminophen/ Hydrocodone Bitart ([place], Anexsia 5/325) 1 tab Q4HP PRN PO MODERATE/SEVERE PAIN (PS 5-10) Last administered on 01/02/17 21:21; Start 12/24 at 14:30; Stop 01/06/17 at 14:29 Acetaminophen/ Hydrocodone Bitart ([place], Anexsia 5/325) 2 tab Q4HP PRN PO SEVERE PAIN (PS 8-10) Last administered on 01/03/17 08:17; Start 12/24/16 at 14 :30; Stop 01/06/17 at 14:29 Albuterol Sulfate (Proventil, Ventolin Hfa) 2 puff Q4HP PRN INH SHORTNESS OF BREATH; Start 12/24/16 at 14:30; Stop 01/23/17 at 14:29 Amlodipine Besylate (Norvasc) 5 mg DAILY PO Last administered on 12/28/16 08: 18; Start 12/25/16 at 09:00; Stop 12/28/16 at 11:15; Status DC Amlodipine Besylate (Norvasc) 5 mg QHS PO Last administered on 01/02/17 21:20 ; Start 12/29/16 at 21:00; Stop 01/28/17 at 20:59 Carvedilol (COReg) 25 mg DAILY PO Last administered on 01/03/17 08:20; Start 12/25/16 at 09:00; Stop 01/24/17 at 08:59 Clopidogrel Bisulfate (PLAVix) 75 mg DAILY PO Last administered on 01/03/17 08 :19; Start 12/25/16 at 09:00; Stop 01/24/17 at 08:59 Dextrose (Dextrose 50%) 25 ml ASDIRECTED PRN IV SEE LABEL COMMENTS; Start 12/24 at 14:30; Stop 01/23/17 at 14:29 Docusate Sodium (Colace) 100 mg BID PO Last administered on 12/31/16 08:14; Start 12/24/16 at 21:00; Stop 12/31/16 at 12:13; Status DC Docusate Sodium (Colace) 100 mg TID PO Last administered on 01/03/17 08:18; Start 12/31/16 at 16:00; Stop 01/30/17 at 15:59 Duloxetine HCl (Cymbalta) 60 mg DAILY PO Last administered on 01/03/17 08:20; Start 12/25/16 at 09:00; Stop 01/24/17 at 08:59 EZETIMIBE (Zetia) 10 mg DAILY PO Last administered on 01/03/17 08:19; Start at 09:00; Stop 01/24/17 at 08:59 Gabapentin (Neurontin) 600 mg Q8H PO Last administered on 12/28/16 05:20; Start 12/24/16 at 14:00; Stop 12/28/16 at 09:38; Status DC Gabapentin (Neurontin) 800 mg Q8H PO Last administered on 01/03/17 06:35; Start 12/28/16 at 14:00; Stop 01/27/17 at 13:59 Glucagon (Glucagon) 1 mg ASDIRECTED PRN SC SEE LABEL COMMENTS; Start 12/24/16 at 14:30; Stop 01/23/17 at 14:29 Glucose (Glucose) 16 GM ASDIRECTED PRN PO SEE LABEL COMMENTS; Start 12/24/16 at 14:30; Stop 01/23/17 at 14:29 Home Med (Med Rec Complete!) ASDIRECTED XX ; Start 12/24/16 at 17:00; Stop at 17:00; Status DC Insulin Detemir (Levemir Insulin) 5 units DAILY SC Last administered on 09:41; Start 12/29/16 at 09:00; Stop 12/30/16 at 10:13; Status DC Insulin Detemir (Levemir Insulin) 10 units DAILY SC Last administered on 08:18; Start 12/31/16 at 09:00; Stop 01/30/17 at 08:59 Insulin Detemir (Levemir Insulin) 20 units QHS SC Last administered on 21:47; Start 12/24/16 at 21:00; Stop 12/27/16 at 12:18; Status DC Insulin Detemir (Levemir Insulin) 20 units QHS SC Last administered on 21:22; Start 12/30/16 at 21:00; Stop 01/29/17 at 20:59 Insulin Detemir (Levemir Insulin) 25 units QHS SC Last administered on 20:41; Start 12/27/16 at 21:00; Stop 12/30/16 at 10:13; Status DC Insulin Human Lispro (HumaLOG INSULIN) See Protocol Table AC SC Last administered on 01/03/17 06:58; Start 12/24/16 at 17:30; Stop 01/23/17 at 17:29 Insulin Human Lispro (HumaLOG INSULIN) See Protocol Table QHS SC Last administered on 01/02/17 21:21; Start 12/24/16 at 21:00; Stop 01/23/17 at 20:59 Latanoprost (Xalatan 0.005% Op Soln) 1 drop QHS OU Last administered on 21:22; Start 12/24/16 at 21:00; Stop 01/23/17 at 20:59 Lidocaine (Lidoderm Patch) 1 patch DAILY TD Last administered on 01/03/17 08: 17; Start 12/30/16 at 09:00; Stop 01/29/17 at 08:59 Losartan Potassium (Cozaar) 25 mg DAILY PO Last administered on 01/03/17 08:19 ; Start 01/01/17 at 09:00; Stop 01/31/17 at 08:59 Losartan Potassium (Cozaar) 50 mg DAILY PO Last administered on 12/31/16 08:13 ; Start 12/25/16 at 09:00; Stop 12/31/16 at 14:56; Status DC Magnesium Hydroxide (Milk Of Magnesia) 30 ml DAILYPRN PRN PO CONSTIPATION Last administered on 12/26/16 08:17; Start 12/24/16 at 14:30; Stop 01/23/17 at 14:29 Multivitamins (Theragram-M) 1 tab DAILY PO Last administered on 01/03/17 08:19 ; Start 12/25/16 at 09:00; Stop 01/24/17 at 08:59 Non-Formulary Medication ( See Comment Field Below ) REMOVE LIDODERM PATCH DAILY@21 XX Last administered on 01/02/17 21:00; Start 12/30/16 at 21:00; Stop 01/29/17 at 20:59 Nystatin (Mycostatin) 5 ml QID PO Last administered on 01/03/17 08:17; Start 12/30/16 at 09:00; Stop 01/06/17 at 08:59 Pantoprazole Sodium (Protonix) 40 mg DAILY PO Last administered on 01/03/17 08 :20; Start 12/25/16 at 09:00; Stop 01/24/17 at 08:59 Polyethylene Glycol (Miralax) 1 pkt DAILY PRN PO CONSTIPATION Last administered on 01/01/17 07:34; Start 12/24/16 at 14:30; Stop 01/23/17 at 14:29 Rivaroxaban (Xarelto) 20 mg DAILY@18 PO Last administered on 01/02/17 17:37; Start 12/24/16 at 18:00; Stop 01/06/17 at 17:59 Rosuvastatin Calcium (Crestor) 10 mg DAILY PO Last administered on 01/03/17 08 :20; Start 12/25/16 at 09:00; Stop 01/24/17 at 08:59 Salmeterol Xinafoate/ Fluticasone (Advair Hfa 115/ 21) 2 puff BID INH Last administered on 01/03/17 07:37; Start 12/24/16 at 21:00; Stop 01/23/17 at 20:59 Senna (Senokot) 1 tab QHS PO Last administered on 01/01/17 20:13; Start at 21:00; Stop 01/23/17 at 20:59 Tiotropium [place] (Spiriva Handihaler) 1 inhalation DAILY@08 INH Last administered on 01/03/17 07:37; Start 12/27/16 at 08:00; Stop 01/26/17 at 07:59 Tiotropium [place] (Spiriva Handihaler) 1 inhalation QPM INH Last administered on 12/26/16 14:10; Start 12/24/16 at 21:00; Stop 12/27/16 at 09:08; Status DC Torsemide (Demadex) 10 mg DAILY PO Last administered on 01/03/17 08:19; Start 12/30/16 at 09:00; Stop 01/29/17 at 08:59 Torsemide (Demadex) 20 mg DAILY PO Last administered on 12/29/16 08:25; Start 12/25/16 at 09:00; Stop 12/30/16 at 09:07; Status DC Vitamin D (Vitamin D) 2,000 units DAILY PO Last administered on 01/03/17 08:20 ; Start 12/25/16 at 09:00; Stop 01/24/17 at 08:59 LINDA GIBSON MD Jan 03, 2017 10:18
[2017-01-03 14:00] VITALS: BP 121/57
[2017-01-03] MEDS: RIVAROXABAN 20 MG TAB (XARELTO) PO SCH (17:40)
[2017-01-03 20:00] VITALS: BP 167/74
[2017-01-03] MEDS: SENNA 8.6 MG TAB (SENOKOT) PO SCH (20:36)
[2017-01-03] MEDS: amLODIPine 5 MG TAB PO SCH (20:37)
[2017-01-03] MEDS: LATANOPROST 0.005% OPHTH SOLN 2.5 ML OU SCH (20:39)
[2017-01-03] MEDS: **NOTE PATIENT COMMENT** MISC XX SCH (21:00)
[2017-01-04] MEDS: NORCO, ANEXSIA 5/325MG TABLET (HYDROcodone/ACETAMINOPHEN) PO PRN ×4 (00:53→21:10)
[2017-01-04] MEDS: GABAPENTIN 400 MG CAP PO SCH ×3 (05:57→21:09)
[2017-01-04 06:00] VITALS: BP 155/70
[2017-01-04] MEDS: HumaLOG INSULIN (NovoLOG) PER UNIT SC SCH ×4 (07:52→21:11)
[2017-01-04] MEDS: ADVAIR HFA 115/21 INHALER INH SCH ×2 (07:54→21:22)
[2017-01-04] MEDS: TIOTROPIUM INHALER/CAPSULE (SPIRIVA) INH SCH (07:54)
[2017-01-04] MEDS: DULoxetine 30 MG CAP (CYMBALTA) PO SCH (09:18)
[2017-01-04] MEDS: PANTOPRAZOLE 40MG TAB (PROTONIX) PO SCH (09:18)
[2017-01-04] MEDS: MULTIVITAMINS/MINERALS THERAP 1 TAB PO SCH (09:19)
[2017-01-04] MEDS: ROSUVASTATIN 10 MG TAB (CRESTOR) PO SCH (09:19)
[2017-01-04] MEDS: VITAMIN D 1,000 INTERNATIONAL UNITS TABLET PO SCH (09:19)
[2017-01-04] MEDS: TORSEMIDE 10 MG TABLET PO SCH (09:19)
[2017-01-04] MEDS: LOSARTAN 25 MG TAB PO SCH (09:19)
[2017-01-04] MEDS: CLOPIDOGREL 75 MG TAB PO SCH (09:19)
[2017-01-04] MEDS: NYSTATIN 500,000 U/5 ML SUSP UDC PO SCH ×4 (09:20→21:10)
[2017-01-04] MEDS: EZETIMIBE 10 MG TAB (ZETIA) PO SCH (09:20)
[2017-01-04] MEDS: LEVEMIR (INSULIN DETEMIR) 1 UNITS/0.01ML SC SCH ×2 (09:20→21:11)
[2017-01-04] MEDS: CARVedilol 12.5 MG TAB PO SCH (09:20)
[2017-01-04] MEDS: LIDOCAINE 5% (LIDODERM) PATCH TD SCH (09:21)
[2017-01-04] MEDS: DOCUSATE SODIUM 100 MG CAP PO SCH ×3 (09:21→21:10)
[2017-01-04 10:21] VITALS: BP 115/56
--- NOTE | 2017-01-04 13:14 | IPNPDOC ---
[employer] Progress Note PROGRESS NOTE DATE OF ADMISSION: 12/24/16 DATE OF SERVICE: 01/04/17 PCP: Ovidio Ascencio DO [phone] Vascular Surgeon: Rj Bernardo MD [phone] IDENTIFICATION STATEMENT: Patient is a 66-year-old woman multiple medical comorbidities status post left [id number] amputation admitted for comprehensive integrated inpatient rehabilitation. PAST MEDICAL HISTORY: Hypertension Hyperlipidemia Diabetes mellitus type 1 [per patient, last hemoglobin A1c a few weeks ago and was > 8] Coronary artery disease Aortic stenosis Congestive heart failure Peripheral artery disease Phlebitis Peripheral neuropathy COPD Asthma Thrush/mouth sores Gastroesophageal reflux Glaucoma Cataracts, bilaterally Macular degeneration, left eye Anxiety/depression Nicotine dependence Heavy alcohol use Sleep apnea on CPAP Arthritis PAST SURGICAL HISTORY: section 2 Bilateral carpal tunnel release Hysterectomy Dilatation and curettage of the uterus Right JOVITA stent 06/04/2005 Bilateral femoral popliteal artery bypass 07/01/2005 Coronary artery stent placement (prior to bypass) Coronary artery bypass graft and aortic valve(pig-valve) replacement January 2012 Left SFA angioplasty and stent 09/12/2012 Femoral to below the knee popliteal bypass on the left secondary to occluded prior bypass Right SFA angioplasty and stent 11/11/2014 Right leg thrombolysis 06/23/2015 Left leg thrombolysis August 2015 Pr vein bypass graft, fem-dorsalis pedis; exlp left ant tib 11/18/2015 Left runoff, thrombolysis the left leg arterial bypass, left dorsalis pedis balloon angioplasty 10/12/2017 ALLERGIES: Ciprofloxacin & sulfa antibiotics give her hives Tape tends to tear her skin MEDICATIONS: Plavix 75 mg daily Xarelto 1 tab daily Protonix 40mg daily Norvasc 5 mg daily Coreg 25 mg by mouth daily Demadex 10 mg daily Vitamin D 2000 units by mouth daily Cymbalta 60 mg daily Zetia 10 mg daily Detrimir 20u SQ qhs, 10U qam Insulin sliding scale before meals and at bedtime Spiriva 18 g 1 capsule nightly Advair Diskus 2 puffs 2 times a day Nystatin S&S Neurontin 800 mg 3 times a day Colace 100 mg twice a day MiraLAX 1 packet daily prn Ventolin 2 puffs every 4 hours as needed for shortness of breath Lumigan 0.1% one drop each eye nightly Clobetasol 0.05% topically bid [place] 1-2 tabs PO q4h prn Lidoderm patch to residual limb q12h on, q12h off Cozaar 50 mg daily Multivitamin 1 tab daily Crestor 10 mg daily SUBJECTIVE: Patient no complaints, left residual limb less sensitive, no pain along incision line any more. Current pain medications effective. Denies any CP, SOB, N/V, diaphoresis, lightheadedness, dysuria, C/D. VITAL SIGNS: 96.9F, pulse 80, respiratory rate 18, 115/56, 96% saturation on room air. Wt 53.6kg PHYSICAL EXAMINATION: GENERAL: Well nourished, well developed, sitting in bed, no acute distress. HEENT: Normocephalic, atraumatic. + scatter small ulcers/lesions mouth ( decreased), PERRL, EOMI CARDIOVASCULAR: S1, S2, regular rate. Left AKA -residual limb with sutures and oscar, reduced erythema at sites with prior lg amount erythema, intact suture line. No discharge or pus. No swelling or calf edema on the right lower limb LUNGS: Decreased breath sounds throughout, but clear to auscultation bilaterally no wheezing, rhonchi rales. ABDOMEN: Soft, nontender, nondistended. Positive normoactive bowel sounds throughout. MUSCULOSKELETAL: MMT: 5/5 strength bilateral upper limbs and right lower limb in all major muscle groups. 4+/5 strength left hip flexors NEUROLOGICAL: Alert and oriented x 3. Answers all questions appropriately. Memory intact. Able to follow commands without difficulty. SKIN: 3 cm skin abrasion with scab on the left distal forearm healing, surgical site left residual limb, intact with sutures and oscar. LABORATORY DATA: 01/02/17: WBC 4.9, Cr 0.57 BG reviewed FUNCTIONAL STATUS: Premorbid: Independent with ADLs and transfers. On Admission: Moderate assist for bed mobility, total assist for repositioning, moderate assist for transfers ASSESSMENT AND PLAN: 1. Left ischemic leg secondary to peripheral artery disease status post left [id number] amputation now with decreased mobility and dysfunctional ADLs: NWB on the left lower limb. Continue Plavix and anticoagulation with Xarelto. Patient making progress. Patient s/p removal of 3 sutures and 2 oscar where erythema most severe 01/03/17 with decreased erythema and pain incision site intact. Continue daily physical and occupational therapy. Rehabilitation nursing for bladder, bowel, medication management and wound care. Follow-up appointment with receiving clerk. 2. Pain: Phantom pain seemingly responding to gabapentin. Reaction to sutures likely contributing to sensitivity. Lidoderm patch helpful . Continue current dose gabapentin , 800mg q8h. Continue acetaminophen and [place] on an as-needed basis. Intermittent ice to the left residual limb. Further adjustments if needed 3. Bowel: Resolved s/p medication adjustments. Continue Colace and senna scheduled along with milk of magnesia on an as-needed basis. 4. Cardiac/coronary artery disease/valvular heart disease/congestive heart failure: Weight ~stable. Azotemia resolved s/p decrease torsimide 12/30/16. Continue daily weights. Continue her other cardiac meds including Coreg, Xarelto , Plavix, Cozaar, Crestor [Hx; due to relative hypertension/ hypotension, changed Norvasc to qpm on 12/28/16]. 5. DVT prophylaxis: Patient anticoagulated with Xarelto. 6. GI prophylaxis: Continue Protonix daily while in the hospital. 7. Pulmonary (COPD, asthma, sleep apnea): Maintain patient on her inhalers, Proventil, Advair, Spiriva. Continue CPAP at night. 8. Diabetes mellitus type 2: Improved BG control s/p adding morning dose detemir 12/30/16. Continue evening detimir (adjusted doses 12/30/16 based on BGs) . [Hx: s/p increase evening dose long-acting insulin 12/27/16]. Continue insulin sliding scale before meals and at bedtime. Carb consistent diet. 9. Depression: Controlled. Continue Cymbalta 10. Diet/severe malnutrition: Prealbumin improved. Continue Glucerna supplements. Maintain carbohydrate consistent diet. 11. Mouth lesions: Resolving. Continue nystatin S&S. / Vital Signs Vital Sign - Last 24 Hours 01/03/17 01/03/17 01/03/17 01/03/17 14:00 20:00 20:00 20:35 Temp 97.9 98.4 Pulse 86 88 Resp 18 18 18 B/P 121/57 167/74 Pulse Ox 97 95 O2 Delivery NIPPV (BIPAP/CPAP) NIPPV (BIPAP/CPAP) Room Air 01/03/17 01/04/17 01/04/17 01/04/17 20:37 00:53 01:23 06:00 Temp 96.9 Pulse 88 93 Resp 18 18 18 B/P 167/74 155/70 Pulse Ox 96 O2 Delivery NIPPV (BIPAP/CPAP) 01/04/17 01/04/17 01/04/17 01/04/17 09:00 09:18 09:19 09:20 Pulse 93 Resp 18 B/P 155/70 155/70 O2 Delivery Room Air 01/04/17 01/04/17 09:50 10:21 Pulse 80 Resp 18 B/P 115/56 Laboratory Data Labs 24H Laboratory Tests 2 01/03/17 16:24: Bedside Glucose (Misc Panel) 153H 01/03/17 20:18: Bedside Glucose (Misc Panel) 255H 01/04/17 06:01: Bedside Glucose (Misc Panel) 130H 01/04/17 12:25: Bedside Glucose (Misc Panel) 140H FSBS Laboratory Tests Test 01/03/17 16:24 01/03/17 20:18 01/04/17 06:01 01/04/17 12:25 Range/Units Bedside Glucose (Misc Panel) 153 255 130 140 80-115 MG/DL Allergies Allergies: Coded Allergies: Ciprofloxacin (Verified Allergy, Unknown, 12/24/16) Sulfa Antibiotics (Verified Allergy, Unknown, 12/24/16) TAPE (Verified Allergy, Unknown, 12/24/16) Current Medications Current Medications Current Medications Acetaminophen (Tylenol Tab) 650 mg Q4HP PRN PO MILD PAIN (PS 1-4) Last administered on 01/02/17 22:23; Start 12/24/16 at 14:30; Stop 01/23/17 at 14:29 Acetaminophen/ Hydrocodone Bitart ([place], Anexsia 5/325) 1 tab Q4HP PRN PO MODERATE/SEVERE PAIN (PS 5-10) Last administered on 01/04/17 09:18; Start 12/24 at 14:30; Stop 01/06/17 at 14:29 Acetaminophen/ Hydrocodone Bitart ([place], Anexsia 5/325) 2 tab Q4HP PRN PO SEVERE PAIN (PS 8-10) Last administered on 01/04/17 00:53; Start 12/24/16 at 14 :30; Stop 01/06/17 at 14:29 Albuterol Sulfate (Proventil, Ventolin Hfa) 2 puff Q4HP PRN INH SHORTNESS OF BREATH; Start 12/24/16 at 14:30; Stop 01/23/17 at 14:29 Amlodipine Besylate (Norvasc) 5 mg DAILY PO Last administered on 12/28/16 08: 18; Start 12/25/16 at 09:00; Stop 12/28/16 at 11:15; Status DC Amlodipine Besylate (Norvasc) 5 mg QHS PO Last administered on 01/03/17 20:37 ; Start 12/29/16 at 21:00; Stop 01/28/17 at 20:59 Carvedilol (COReg) 25 mg DAILY PO Last administered on 01/04/17 09:20; Start 12/25/16 at 09:00; Stop 01/24/17 at 08:59 Clopidogrel Bisulfate (PLAVix) 75 mg DAILY PO Last administered on 01/04/17 09 :19; Start 12/25/16 at 09:00; Stop 01/24/17 at 08:59 Dextrose (Dextrose 50%) 25 ml ASDIRECTED PRN IV SEE LABEL COMMENTS; Start 12/24 at 14:30; Stop 01/23/17 at 14:29 Docusate Sodium (Colace) 100 mg BID PO Last administered on 12/31/16 08:14; Start 12/24/16 at 21:00; Stop 12/31/16 at 12:13; Status DC Docusate Sodium (Colace) 100 mg TID PO Last administered on 01/03/17 20:36; Start 12/31/16 at 16:00; Stop 01/30/17 at 15:59 Duloxetine HCl (Cymbalta) 60 mg DAILY PO Last administered on 01/04/17 09:18; Start 12/25/16 at 09:00; Stop 01/24/17 at 08:59 EZETIMIBE (Zetia) 10 mg DAILY PO Last administered on 01/04/17 09:20; Start at 09:00; Stop 01/24/17 at 08:59 Gabapentin (Neurontin) 600 mg Q8H PO Last administered on 12/28/16 05:20; Start 12/24/16 at 14:00; Stop 12/28/16 at 09:38; Status DC Gabapentin (Neurontin) 800 mg Q8H PO Last administered on 01/04/17 05:57; Start 12/28/16 at 14:00; Stop 01/27/17 at 13:59 Glucagon (Glucagon) 1 mg ASDIRECTED PRN SC SEE LABEL COMMENTS; Start 12/24/16 at 14:30; Stop 01/23/17 at 14:29 Glucose (Glucose) 16 GM ASDIRECTED PRN PO SEE LABEL COMMENTS; Start 12/24/16 at 14:30; Stop 01/23/17 at 14:29 Home Med (Med Rec Complete!) ASDIRECTED XX ; Start 12/24/16 at 17:00; Stop at 17:00; Status DC Insulin Detemir (Levemir Insulin) 5 units DAILY SC Last administered on 09:41; Start 12/29/16 at 09:00; Stop 12/30/16 at 10:13; Status DC Insulin Detemir (Levemir Insulin) 10 units DAILY SC Last administered on 09:20; Start 12/31/16 at 09:00; Stop 01/30/17 at 08:59 Insulin Detemir (Levemir Insulin) 20 units QHS SC Last administered on 21:47; Start 12/24/16 at 21:00; Stop 12/27/16 at 12:18; Status DC Insulin Detemir (Levemir Insulin) 20 units QHS SC Last administered on 20:37; Start 12/30/16 at 21:00; Stop 01/29/17 at 20:59 Insulin Detemir (Levemir Insulin) 25 units QHS SC Last administered on 20:41; Start 12/27/16 at 21:00; Stop 12/30/16 at 10:13; Status DC Insulin Human Lispro (HumaLOG INSULIN) See Protocol Table AC SC Last administered on 01/04/17 13:01; Start 12/24/16 at 17:30; Stop 01/23/17 at 17:29 Insulin Human Lispro (HumaLOG INSULIN) See Protocol Table QHS SC Last administered on 01/03/17 20:38; Start 12/24/16 at 21:00; Stop 01/23/17 at 20:59 Latanoprost (Xalatan 0.005% Op Soln) 1 drop QHS OU Last administered on 20:39; Start 12/24/16 at 21:00; Stop 01/23/17 at 20:59 Lidocaine (Lidoderm Patch) 1 patch DAILY TD Last administered on 01/04/17 09: 21; Start 12/30/16 at 09:00; Stop 01/29/17 at 08:59 Losartan Potassium (Cozaar) 25 mg DAILY PO Last administered on 01/04/17 09:19 ; Start 01/01/17 at 09:00; Stop 01/31/17 at 08:59 Losartan Potassium (Cozaar) 50 mg DAILY PO Last administered on 12/31/16 08:13 ; Start 12/25/16 at 09:00; Stop 12/31/16 at 14:56; Status DC Magnesium Hydroxide (Milk Of Magnesia) 30 ml DAILYPRN PRN PO CONSTIPATION Last administered on 12/26/16 08:17; Start 12/24/16 at 14:30; Stop 01/23/17 at 14:29 Multivitamins (Theragram-M) 1 tab DAILY PO Last administered on 01/04/17 09:19 ; Start 12/25/16 at 09:00; Stop 01/24/17 at 08:59 Non-Formulary Medication ( See Comment Field Below ) REMOVE LIDODERM PATCH DAILY@21 XX Last administered on 01/03/17 21:00; Start 12/30/16 at 21:00; Stop 01/29/17 at 20:59 Nystatin (Mycostatin) 5 ml QID PO Last administered on 01/04/17 13:01; Start 12/30/16 at 09:00; Stop 01/06/17 at 08:59 Pantoprazole Sodium (Protonix) 40 mg DAILY PO Last administered on 01/04/17 09 :18; Start 12/25/16 at 09:00; Stop 01/24/17 at 08:59 Polyethylene Glycol (Miralax) 1 pkt DAILY PRN PO CONSTIPATION Last administered on 01/01/17 07:34; Start 12/24/16 at 14:30; Stop 01/23/17 at 14:29 Rivaroxaban (Xarelto) 20 mg DAILY@18 PO Last administered on 01/03/17 17:40; Start 12/24/16 at 18:00; Stop 01/06/17 at 17:59 Rosuvastatin Calcium (Crestor) 10 mg DAILY PO Last administered on 01/04/17 09 :19; Start 12/25/16 at 09:00; Stop 01/24/17 at 08:59 Salmeterol Xinafoate/ Fluticasone (Advair Hfa 115/ 21) 2 puff BID INH Last administered on 01/04/17 07:54; Start 12/24/16 at 21:00; Stop 01/23/17 at 20:59 Senna (Senokot) 1 tab QHS PO Last administered on 01/03/17 20:36; Start at 21:00; Stop 01/23/17 at 20:59 Tiotropium [place] (Spiriva Handihaler) 1 inhalation DAILY@08 INH Last administered on 01/04/17 07:54; Start 12/27/16 at 08:00; Stop 01/26/17 at 07:59 Tiotropium [place] (Spiriva Handihaler) 1 inhalation QPM INH Last administered on 12/26/16 14:10; Start 12/24/16 at 21:00; Stop 12/27/16 at 09:08; Status DC Torsemide (Demadex) 10 mg DAILY PO Last administered on 01/04/17 09:19; Start 12/30/16 at 09:00; Stop 01/29/17 at 08:59 Torsemide (Demadex) 20 mg DAILY PO Last administered on 12/29/16 08:25; Start 12/25/16 at 09:00; Stop 12/30/16 at 09:07; Status DC Vitamin D (Vitamin D) 2,000 units DAILY PO Last administered on 01/04/17 09:19 ; Start 12/25/16 at 09:00; Stop 01/24/17 at 08:59 LINDA GIBSON MD Jan 04, 2017 13:14
[2017-01-04 14:00] VITALS: BP 101/57
[2017-01-04] MEDS ORDERED: CARV25TA PO (16:14)
[2017-01-04] MEDS ORDERED: XARE20TA PO (16:14)
[2017-01-04] MEDS ORDERED: NEUR800T PO (16:14)
[2017-01-04] MEDS ORDERED: CRES20TA PO (16:14)
[2017-01-04] MEDS ORDERED: DULO1CAP3 PO (16:14)
[2017-01-04] MEDS ORDERED: AMLO5TAB2 PO (16:14)
[2017-01-04] MEDS ORDERED: PLAV75TA38 PO (16:14)
[2017-01-04] MEDS ORDERED: ZETI10TA2 PO (16:14)
[2017-01-04] MEDS ORDERED: HYDR-3713 PO (16:18)
[2017-01-04] MEDS: RIVAROXABAN 20 MG TAB (XARELTO) PO SCH (18:24)
[2017-01-04 20:00] VITALS: BP 113/59
[2017-01-04] MEDS: amLODIPine 5 MG TAB PO SCH (21:09)
[2017-01-04] MEDS: SENNA 8.6 MG TAB (SENOKOT) PO SCH (21:10)
[2017-01-04] MEDS: **NOTE PATIENT COMMENT** MISC XX SCH (21:14)
[2017-01-04] MEDS: LATANOPROST 0.005% OPHTH SOLN 2.5 ML OU SCH (21:14)
[2017-01-04] MEDS: ACETAMINOPHEN TAB 650MG DOSE (2X325MG) PO PRN (22:55)
[2017-01-05 06:00] VITALS: BP 145/65
[2017-01-05] MEDS: GABAPENTIN 400 MG CAP PO SCH (06:33)
[2017-01-05 07:28] LABS: MEAN CORPUSCULAR HEMOGLOBIN 27.3 pg (27.0-33.0); MEAN CORPUSCULAR HGB CONC 30.8 g/dl (32.0-36.5); MEAN CORPUSCULAR VOLUME 88.7 fl (80.0-96.0); RED CELL DISTRIBUTION WIDTH 15.5 % (11.5-14.5); WHITE BLOOD COUNT 6.8 K/mm3 (4.0-10.0)
[2017-01-05 07:48] LABS: ANION GAP 5 MEQ/L (8-16); BLOOD UREA NITROGEN 18 MG/DL (7-18); CALCIUM LEVEL 9.1 MG/DL (8.8-10.2); CARBON DIOXIDE LEVEL 33 MEQ/L (21-32); CHLORIDE LEVEL 102 MEQ/L (98-107); CREATININE FOR GFR 0.62 MG/DL (0.55-1.02); GLOMERULAR FILTRATION RATE > 60.0 (>45); GLUCOSE, FASTING 147 MG/DL (80-110); SODIUM LEVEL 140 MEQ/L (136-145)
[2017-01-05] MEDS: HumaLOG INSULIN (NovoLOG) PER UNIT SC SCH (07:58)
[2017-01-05] MEDS: ADVAIR HFA 115/21 INHALER INH SCH (08:33)
[2017-01-05] MEDS: TIOTROPIUM INHALER/CAPSULE (SPIRIVA) INH SCH (08:33)
[2017-01-05] MEDS: CARVedilol 12.5 MG TAB PO SCH (09:00)
[2017-01-05] MEDS: DOCUSATE SODIUM 100 MG CAP PO SCH (09:00)
[2017-01-05] MEDS: LEVEMIR (INSULIN DETEMIR) 1 UNITS/0.01ML SC SCH (09:24)
[2017-01-05] MEDS ORDERED: COZA1TAB PO (09:25)
[2017-01-05] MEDS ORDERED: TORS10TA3 PO (09:25)
[2017-01-05] MEDS: TORSEMIDE 10 MG TABLET PO SCH (09:34)
[2017-01-05 09:35] VITALS: BP 105/56
[2017-01-05] MEDS: LOSARTAN 25 MG TAB PO SCH (09:35)
[2017-01-05] MEDS: EZETIMIBE 10 MG TAB (ZETIA) PO SCH (09:36)
[2017-01-05] MEDS: ROSUVASTATIN 10 MG TAB (CRESTOR) PO SCH (09:36)
[2017-01-05] MEDS: CLOPIDOGREL 75 MG TAB PO SCH (09:36)
[2017-01-05] MEDS: VITAMIN D 1,000 INTERNATIONAL UNITS TABLET PO SCH (09:36)
[2017-01-05] MEDS: PANTOPRAZOLE 40MG TAB (PROTONIX) PO SCH (09:36)
[2017-01-05] MEDS: DULoxetine 30 MG CAP (CYMBALTA) PO SCH (09:36)
[2017-01-05] MEDS: NYSTATIN 500,000 U/5 ML SUSP UDC PO SCH (09:37)
[2017-01-05] MEDS: MULTIVITAMINS/MINERALS THERAP 1 TAB PO SCH (09:37)
[2017-01-05] MEDS: LIDOCAINE 5% (LIDODERM) PATCH TD SCH (09:37)
--- NOTE | 2017-01-05 11:43 | DS.PDOC ---
Dragline Engineer Discharge Note DISCHARGE SUMMARY DATE OF ADMISSION: 12/24/16 DATE OF SERVICE: 01/05/17 PCP: Ovidio Ascencio DO [phone] Vascular Surgeon: Rj Bernardo MD [phone] DISCHARGE DIAGNOSES 1. Left ischemic leg secondary to peripheral artery disease status post left [id number] amputation with decreased mobility and dysfunctional ADLs 2. Phantom limb pain 3. Constipation 4. Coronary artery disease/valvular heart disease/congestive heart failure 5. COPD, asthma, sleep apnea 6. Diabetes mellitus type 2 7. Depression 8. Severe malnutrition IDENTIFICATION STATEMENT: Patient is a 66-year-old woman multiple medical comorbidities status post left [id number] amputation admitted for comprehensive integrated inpatient rehabilitation. PAST MEDICAL HISTORY: Hypertension Hyperlipidemia Diabetes mellitus type 1 [per patient, last hemoglobin A1c a few weeks ago and was > 8] Coronary artery disease Aortic stenosis Congestive heart failure Peripheral artery disease Phlebitis Peripheral neuropathy COPD Asthma Thrush/mouth sores Gastroesophageal reflux Glaucoma Cataracts, bilaterally Macular degeneration, left eye Anxiety/depression Nicotine dependence Heavy alcohol use Sleep apnea on CPAP Arthritis PAST SURGICAL HISTORY: section 2 Bilateral carpal tunnel release Hysterectomy Dilatation and curettage of the uterus Right JOVITA stent 06/04/2005 Bilateral femoral popliteal artery bypass 07/01/2005 Coronary artery stent placement (prior to bypass) Coronary artery bypass graft and aortic valve(pig-valve) replacement January 2012 Left SFA angioplasty and stent 09/12/2012 Femoral to below the knee popliteal bypass on the left secondary to occluded prior bypass Right SFA angioplasty and stent 11/11/2014 Right leg thrombolysis 06/23/2015 Left leg thrombolysis August 2015 Pr vein bypass graft, fem-dorsalis pedis; exlp left ant tib 11/18/2015 Left runoff, thrombolysis the left leg arterial bypass, left dorsalis pedis balloon angioplasty 10/12/2017 HOSPITAL COURSE The patient underwent daily physical and occupational therapy. She was maintained on NWB left residual limb. She tolerated her therapy sessions well and made progressive gains. Surgical site was monitored daily and noted to be healing well. On 01/31/17 (POD#13) she was noted to have significant erythema mostly at areas that sutures were in contact with skin. This was though secondary to reaction to the sutures. On that day 3 sutures and 2 oscar were removed. The remainder with left for the surgeon to remove and she was provided with appointment with her surgeon 2 days following her discharge from rehabilitation. By the time of discharge, erythema where sutures were remove was significantly reduced. On 01/05/17 patient had met her goals and was deemed stable discharge home with [facility]. Other issues addressed while on the rehabilitation unit are outlined as follows: 1. Left ischemic leg secondary to peripheral artery disease status post left [id number] amputation: NWB on the left lower limb. Continued Plavix and anticoagulation with Xarelto. 2. Pain: Phantom pain seemingly responding to higher dose gabapentin [800mg tid] . Reaction to sutures likely contributing to sensitivity. Lidoderm patch was helpful , but mostly resolved after removing some of the sutures (see above). Continued on acetaminophen and [place] on an as-needed basis. Intermittent ice to the left residual limb. 3. Constipation: Resolved s/p bowel medication adjustments [Colace and senna scheduled along with milk of magnesia on an as-needed basis]. 4. Cardiac/coronary artery disease/valvular heart disease/congestive heart failure: Measured daily weights and since weight was down since admission and patient became prerenal, torsimide decreased from 20mg to 10mg daily 12/30/16. Azotemia resolved 12/30/16. Due to relatively low BP, changed Norvasc to qpm on 12/28/16, followed by decreasing Cozaar from 50mg to 25mg with improved BP. Maintained her other cardiac meds including Coreg, Xarelto, Plavix and Crestor. 5. DVT prophylaxis: Patient anticoagulated with Xarelto. 6. GI prophylaxis: Continued Protonix daily. 7. COPD, asthma, sleep apnea: Maintain patient on inhalers, Proventil, Advair, Spiriva. Continue CPAP at night. 8. Tobacco dependence: Counselled regarding smoking cessation and given list of free programs for her and her . 9. Diabetes mellitus type 2: Adjusted insulin (added morning dose of long acting ) in addition to evening dose and maintained on ISS. Carbohydrate consistent diet. 10. Depression: Controlled. Continued on Cymbalta 11. Severe malnutrition: Provided Glucerna nutritional supplements and prealbumin improved at discharge. 12. Thrush, presumed: Resolved status post nystatin S&S. FUNCTIONAL STATUS on discharge: Modified independent for mobilizing short distances, Mod I for ADLs. VITAL SIGNS: 97.9F, pulse 77, respiratory rate 18, 105/65, 92% saturation on room air. Wt 52.5kg PHYSICAL EXAMINATION: GENERAL: Well nourished, well developed, sitting in bed, no acute distress. HEENT: Normocephalic, atraumatic. + scatter small ulcers/lesions mouth -resolved , PERRL, EOMI CARDIOVASCULAR: S1, S2, regular rate. Left AKA -residual limb with sutures and oscar, reduced erythema at sites with prior lg amount erythema, intact suture line. No discharge or pus. No swelling or calf edema on the right lower limb LUNGS: Decreased breath sounds throughout, but clear to auscultation bilaterally no wheezing, rhonchi rales. ABDOMEN: Soft, nontender, nondistended. Positive normoactive bowel sounds throughout. MUSCULOSKELETAL: MMT: 5/5 strength bilateral upper limbs and right lower limb in all major muscle groups. 5/5 strength left hip flexors NEUROLOGICAL: Alert and oriented x 3. Answers all questions appropriately. Memory intact. Able to follow commands without difficulty. SKIN: 3 cm skin abrasion with scab on the left distal forearm healing, surgical site left residual limb, intact with sutures and oscar. LABORATORY DATA: 01/05/17: reviewed, see below BG reviewed ALLERGIES: Ciprofloxacin & sulfa antibiotics give her hives Tape tends to tear her skin MEDICATIONS: Plavix 75 mg daily Xarelto 1 tab daily Protonix 40mg daily Norvasc 5 mg qhs Coreg 25 mg by mouth daily Demadex 10 mg daily Cozaar 25 mg daily Crestor 10 mg daily Vitamin D 2000 units by mouth daily Cymbalta 60 mg daily Zetia 10 mg daily Humalog 20U qhs Insulin sliding scale before meals and at bedtime Spiriva 18 g 1 capsule nightly Advair Diskus 2 puffs 2 times a day Neurontin 800 mg 3 times a day Colace 100 mg twice a day MiraLAX 1 packet daily prn Ventolin 2 puffs every 4 hours as needed for shortness of breath Lumigan 0.1% one drop each eye nightly Clobetasol 0.05% topically bid [place] 1-2 tabs PO q4h prn (max 5 tabs per day) Multivitamin 1 tab daily DISCHARGE DISPOSITION: 1. The patient discharge home with family and HHS 2. The patient discharged in stable condition 3. Discharged with [facility]HS to include RN, PT, OT and bath aide. 4. Equipment: Front wheeled walker 5. Post discharge follow-up medical appointments: PCP & vascular surgeon. / Vital Signs/I&O Vital Sign - Last 24 Hours 01/04/17 01/04/17 01/04/17 01/04/17 14:00 14:06 20:00 20:00 Temp 98.6 97.5 Pulse 84 91 Resp 18 18 20 B/P 101/57 113/59 Pulse Ox 97 96 O2 Delivery Room Air Room Air Room Air 01/04/17 01/04/17 01/04/17 01/05/17 21:09 21:10 21:40 06:00 Temp 97.9 Pulse 86 77 Resp 18 18 18 B/P 129/60 145/65 Pulse Ox 92 O2 Delivery NIPPV (BIPAP/CPAP) 01/05/17 01/05/17 09:00 09:35 Pulse 77 B/P 145/65 105/56 I&O- Last 24 Hours up to 6 AM 01/05/17 06:00 Intake Total 1440 ml Balance 1440 ml Laboratory Data CBC/BMP Laboratory Tests 01/05/17 06:58 Calcium Level 9.1, Red Blood Count 4.24, Mean Corpuscular Volume 88.7, Mean Corpuscular Hemoglobin 27.3, Mean Corpuscular Hemoglobin Concent 30.8 L, Red Cell Distribution Width 15.5 H Labs 48H Laboratory Tests 01/03/17 16:24: Bedside Glucose (Misc Panel) 153H 01/03/17 20:18: Bedside Glucose (Misc Panel) 255H 01/04/17 06:01: Bedside Glucose (Misc Panel) 130H 01/04/17 12:25: Bedside Glucose (Misc Panel) 140H 01/04/17 17:32: Bedside Glucose (Misc Panel) 337H 01/04/17 18:55: Bedside Glucose (Misc Panel) 445H 01/05/17 05:42: Bedside Glucose (Misc Panel) 110 01/05/17 06:58: Anion Gap 5L, Blood Urea Nitrogen 18, Creatinine 0.62, Sodium Level 140, Potassium Level 4.0, Chloride Level 102, Carbon Dioxide Level 33H, Calcium Level 9.1, Fasting Glucose 147H, Glomerular Filtration Rate > 60.0, White Blood Count 6.8, Red Blood Count 4.24, Hemoglobin 11.6L, Hematocrit 37.6, Mean Corpuscular Volume 88.7, Mean Corpuscular Hemoglobin 27.3, Mean Corpuscular Hemoglobin Concent 30.8L, Red Cell Distribution Width 15.5H, Platelet Count 352 FSBS Laboratory Tests Test 01/04/17 12:25 01/04/17 17:32 01/04/17 18:55 01/05/17 05:42 Range/Units Bedside Glucose (Misc Panel) 140 337 445 110 80-115 MG/DL Medications Medications Current Medications Acetaminophen (Tylenol Tab) 650 mg Q4HP PRN PO MILD PAIN (PS 1-4) Last administered on 01/04/17 22:55; Start 12/24/16 at 14:30; Stop 01/23/17 at 14:29 Acetaminophen/ Hydrocodone Bitart ([place], Anexsia 5/325) 1 tab Q4HP PRN PO MODERATE/SEVERE PAIN (PS 5-10) Last administered on 01/04/17 09:18; Start 12/24 at 14:30; Stop 01/06/17 at 14:29 Acetaminophen/ Hydrocodone Bitart ([place], Anexsia 5/325) 2 tab Q4HP PRN PO SEVERE PAIN (PS 8-10) Last administered on 01/04/17 21:10; Start 12/24/16 at 14 :30; Stop 01/06/17 at 14:29 Albuterol Sulfate (Proventil, Ventolin Hfa) 2 puff Q4HP PRN INH SHORTNESS OF BREATH; Start 12/24/16 at 14:30; Stop 01/23/17 at 14:29 Amlodipine Besylate (Norvasc) 5 mg DAILY PO Last administered on 12/28/16 08: 18; Start 12/25/16 at 09:00; Stop 12/28/16 at 11:15; Status DC Amlodipine Besylate (Norvasc) 5 mg QHS PO Last administered on 01/04/17 21:09 ; Start 12/29/16 at 21:00; Stop 01/28/17 at 20:59 Carvedilol (COReg) 25 mg DAILY PO Last administered on 01/04/17 09:20; Start 12/25/16 at 09:00; Stop 01/24/17 at 08:59 Clopidogrel Bisulfate (PLAVix) 75 mg DAILY PO Last administered on 01/05/17 09: 36; Start 12/25/16 at 09:00; Stop 01/24/17 at 08:59 Dextrose (Dextrose 50%) 25 ml ASDIRECTED PRN IV SEE LABEL COMMENTS; Start 12/24 at 14:30; Stop 01/23/17 at 14:29 Docusate Sodium (Colace) 100 mg BID PO Last administered on 12/31/16 08:14; Start 12/24/16 at 21:00; Stop 12/31/16 at 12:13; Status DC Docusate Sodium (Colace) 100 mg TID PO Last administered on 01/04/17 21:10; Start 12/31/16 at 16:00; Stop 01/30/17 at 15:59 Duloxetine HCl (Cymbalta) 60 mg DAILY PO Last administered on 01/05/17 09:36; Start 12/25/16 at 09:00; Stop 01/24/17 at 08:59 EZETIMIBE (Zetia) 10 mg DAILY PO Last administered on 01/05/17 09:36; Start at 09:00; Stop 01/24/17 at 08:59 Gabapentin (Neurontin) 600 mg Q8H PO Last administered on 12/28/16 05:20; Start 12/24/16 at 14:00; Stop 12/28/16 at 09:38; Status DC Gabapentin (Neurontin) 800 mg Q8H PO Last administered on 01/05/17 06:33; Start 12/28/16 at 14:00; Stop 01/27/17 at 13:59 Glucagon (Glucagon) 1 mg ASDIRECTED PRN SC SEE LABEL COMMENTS; Start 12/24/16 at 14:30; Stop 01/23/17 at 14:29 Glucose (Glucose) 16 GM ASDIRECTED PRN PO SEE LABEL COMMENTS; Start 12/24/16 at 14:30; Stop 01/23/17 at 14:29 Home Med (Med Rec Complete!) ASDIRECTED XX ; Start 12/24/16 at 17:00; Stop at 17:00; Status DC Insulin Detemir (Levemir Insulin) 5 units DAILY SC Last administered on 09:41; Start 12/29/16 at 09:00; Stop 12/30/16 at 10:13; Status DC Insulin Detemir (Levemir Insulin) 10 units DAILY SC Last administered on 09:24; Start 12/31/16 at 09:00; Stop 01/30/17 at 08:59 Insulin Detemir (Levemir Insulin) 20 units QHS SC Last administered on 21:47; Start 12/24/16 at 21:00; Stop 12/27/16 at 12:18; Status DC Insulin Detemir (Levemir Insulin) 20 units QHS SC Last administered on 21:11; Start 12/30/16 at 21:00; Stop 01/29/17 at 20:59 Insulin Detemir (Levemir Insulin) 25 units QHS SC Last administered on 20:41; Start 12/27/16 at 21:00; Stop 12/30/16 at 10:13; Status DC Insulin Human Lispro (HumaLOG INSULIN) See Protocol Table AC SC Last administered on 01/05/17 07:58; Start 12/24/16 at 17:30; Stop 01/23/17 at 17:29 Insulin Human Lispro (HumaLOG INSULIN) See Protocol Table QHS SC Last administered on 01/04/17 21:11; Start 12/24/16 at 21:00; Stop 01/23/17 at 20:59 Latanoprost (Xalatan 0.005% Op Soln) 1 drop QHS OU Last administered on 21:14; Start 12/24/16 at 21:00; Stop 01/23/17 at 20:59 Lidocaine (Lidoderm Patch) 1 patch DAILY TD Last administered on 01/05/17 09:37 ; Start 12/30/16 at 09:00; Stop 01/29/17 at 08:59 Losartan Potassium (Cozaar) 25 mg DAILY PO Last administered on 01/05/17 09:35 ; Start 01/01/17 at 09:00; Stop 01/31/17 at 08:59 Losartan Potassium (Cozaar) 50 mg DAILY PO Last administered on 12/31/16 08:13 ; Start 12/25/16 at 09:00; Stop 12/31/16 at 14:56; Status DC Magnesium Hydroxide (Milk Of Magnesia) 30 ml DAILYPRN PRN PO CONSTIPATION Last administered on 12/26/16 08:17; Start 12/24/16 at 14:30; Stop 01/23/17 at 14:29 Multivitamins (Theragram-M) 1 tab DAILY PO Last administered on 01/05/17 09:37 ; Start 12/25/16 at 09:00; Stop 01/24/17 at 08:59 Non-Formulary Medication ( See Comment Field Below ) REMOVE LIDODERM PATCH DAILY@21 XX Last administered on 01/04/17 21:14; Start 12/30/16 at 21:00; Stop 01/29/17 at 20:59 Nystatin (Mycostatin) 5 ml QID PO Last administered on 01/05/17 09:37; Start at 09:00; Stop 01/06/17 at 08:59 Pantoprazole Sodium (Protonix) 40 mg DAILY PO Last administered on 01/05/17 09: 36; Start 12/25/16 at 09:00; Stop 01/24/17 at 08:59 Polyethylene Glycol (Miralax) 1 pkt DAILY PRN PO CONSTIPATION Last administered on 01/01/17 07:34; Start 12/24/16 at 14:30; Stop 01/23/17 at 14:29 Rivaroxaban (Xarelto) 20 mg DAILY@18 PO Last administered on 01/04/17 18:24; Start 12/24/16 at 18:00; Stop 01/06/17 at 17:59 Rosuvastatin Calcium (Crestor) 10 mg DAILY PO Last administered on 01/05/17 09: 36; Start 12/25/16 at 09:00; Stop 01/24/17 at 08:59 Salmeterol Xinafoate/ Fluticasone (Advair Hfa 115/ 21) 2 puff BID INH Last administered on 01/05/17 08:33; Start 12/24/16 at 21:00; Stop 01/23/17 at 20:59 Senna (Senokot) 1 tab QHS PO Last administered on 01/04/17 21:10; Start at 21:00; Stop 01/23/17 at 20:59 Tiotropium [place] (Spiriva Handihaler) 1 inhalation DAILY@08 INH Last administered on 01/05/17 08:33; Start 12/27/16 at 08:00; Stop 01/26/17 at 07:59 Tiotropium [place] (Spiriva Handihaler) 1 inhalation QPM INH Last administered on 12/26/16 14:10; Start 12/24/16 at 21:00; Stop 12/27/16 at 09:08; Status DC Torsemide (Demadex) 10 mg DAILY PO Last administered on 01/05/17 09:34; Start 12/30/16 at 09:00; Stop 01/29/17 at 08:59 Torsemide (Demadex) 20 mg DAILY PO Last administered on 12/29/16 08:25; Start 12/25/16 at 09:00; Stop 12/30/16 at 09:07; Status DC Vitamin D (Vitamin D) 2,000 units DAILY PO Last administered on 01/05/17 09:36 ; Start 12/25/16 at 09:00; Stop 01/24/17 at 08:59 Scheduled Amlodipine Besylate (Amlodipine Besylate) 5 Mg Tab 5 MG PO DAILY STARTED AT [facility] Bimatoprost (Lumigan) 50 Drop/2.5 Ml Marlene 1 DROP OU QHS (Reported) Carvedilol (Carvedilol) 25 Mg Tab 25 MG PO DAILY Cholecalciferol (Vitamin D) 1,000 Unit Tab 2,000 UNIT PO DAILY (Reported) Clopidogrel Bisulfate (Plavix) 75 Mg Tab 75 MG PO DAILY Docusate Sodium (Colace) 100 Mg Cap 100 MG PO BID (Reported) STARTED AT [facility] Duloxetine Hcl (Duloxetine HCl) 60 Mg Cap 60 MG PO DAILY Ezetimibe (Zetia) 10 Mg Tab 10 MG PO DAILY Gabapentin (Neurontin) 800 Mg Tab 800 MG PO TID Insulin Glargine (Lantus) 1 Units/0.01 Ml Susp 20 UNITS SC QHS (Reported) Insulin Human Lispro (Humalog) 1 Units/0.01 Ml Inj 0 SC ACHS (Reported) Losartan Potassium (Losartan Potassium) 50 Mg Tab 50 MG PO DAILY (Reported) Losartan Potassium (Cozaar) 25 Mg Tab 25 MG PO DAILY Multivitamins (Ocuvite) 1 Tab Tab 1 TAB PO DAILY (Reported) Polyethylene Glycol (Miralax) 1 Pow Pow 17 GM PO DAILY (Reported) STARTED AT [facility] Rivaroxaban (Xarelto) 20 Mg Tab 20 MG PO QPM Rosuvastatin Calcium (Crestor) 20 Mg Tab 20 MG PO DAILY Salmeterol/Fluticasone (Advair Hfa 115-21 Mcg/Act) 1 Aer Aer 2 PUFF INH BID ( Reported) Tiotropium [place] Monohydrate (Spiriva Handihaler) 18 Mcg Cap 1 INHALATION INH QHS (Reported) Torsemide (Torsemide) 20 Mg Tab 20 MG PO DAILY (Reported) Torsemide (Torsemide) 10 Mg Tab 10 MG PO DAILY Scheduled PRN Acetaminophen/Hydrocodone (Hydrocodone/Acetaminophen 5-325 mg) 1 Tab Tab 1-2 TAB PO Q4H PRN PRN MODERATE/SEVERE PAIN (PS 5-10) MDD 4 Allergies Coded Allergies: Ciprofloxacin (Verified Allergy, Unknown, 12/24/16) Sulfa Antibiotics (Verified Allergy, Unknown, 12/24/16) TAPE (Verified Allergy, Unknown, 12/24/16) LINDA GIBSON MD Jan 05, 2017 11:43
== END 2017-01-05 12:25 | disposition home health service (06) | DRG 559 ==
LOC: M PM&R 15:12
PROVIDERS: ADMIT Physical Medicine & Rehabilitation; ATTEND Physical Medicine & Rehabilitation
DX: Z47.81 Encounter for orthopedic aftercare following surgical amputation (principal); E43 Unspecified severe protein-calorie malnutrition; B37.0 Candidal stomatitis; E11.51 Type 2 diabetes mellitus with diabetic peripheral angiopathy without gangrene; G54.6 Phantom limb syndrome with pain; I11.0 Hypertensive heart disease with heart failure; E78.5 Hyperlipidemia, unspecified; I25.10 Atherosclerotic heart disease of native coronary artery without angina pectoris; I35.0 Nonrheumatic aortic (valve) stenosis; I50.9 Heart failure, unspecified; E11.42 Type 2 diabetes mellitus with diabetic polyneuropathy; K59.00 Constipation, unspecified; J44.9 Chronic obstructive pulmonary disease, unspecified; K21.9 Gastro-esophageal reflux disease without esophagitis; I73.9 Peripheral vascular disease, unspecified; H40.9 Unspecified glaucoma; H35.30 Unspecified macular degeneration; H26.9 Unspecified cataract; I80.9 Phlebitis and thrombophlebitis of unspecified site; L25.8 Unspecified contact dermatitis due to other agents; J45.909 Unspecified asthma, uncomplicated; F41.8 Other specified anxiety disorders; F17.210 Nicotine dependence, cigarettes, uncomplicated; F10.20 Alcohol dependence, uncomplicated; M19.90 Unspecified osteoarthritis, unspecified site; G47.30 Sleep apnea, unspecified; Z95.5 Presence of coronary angioplasty implant and graft; Z95.820 Peripheral vascular angioplasty status with implants and grafts; Z95.3 Presence of xenogenic heart valve; Z88.2 Allergy status to sulfonamides; Z88.1 Allergy status to other antibiotic agents; Z79.02 Long term (current) use of antithrombotics/antiplatelets; Z79.4 Long term (current) use of insulin; Z79.01 Long term (current) use of anticoagulants; Z79.899 Other long term (current) drug therapy; Z89.612 Acquired absence of left leg above knee; Z90.710 Acquired absence of both cervix and uterus; Z99.89 Dependence on other enabling machines and devices